=== PATIENT | female | born 1935 | race Caucasian/White ===

== ENCOUNTER 2018-01-22 10:57 | Emergency (ER) | payer OTHER, MEDICARE ==
--- OUTSIDE RECORDS SUMMARY | 2018-01-22 11:12 | XMS REPORT ---
:1935 [facility] Address [address] [place] [address] Care Team Providers Name Role Phone CHERELLE CHRISTINA Unavailable Unavailable Problems This patient has no known problems. Allergies, Adverse Reactions, Alerts This patient has no known allergies or adverse reactions. Medications This patient has no known medications. Results Test Description Test Time Test Comments Text Results Atomic Results Result Comments AFB CULTURE + SMEAR 2017-06-03 08:43:00 Test Item Value Reference Range Comments CULTURE (BEAKER) (test hztl=9923) No acid-fast bacilli isolated in 42 days AFB SMEAR (BEAKER) (test xblr=621) No acid fast bacilli seen AFB CULTURE + [id number] 08:43:00 Test Item Value Reference Range Comments CULTURE (BEAKER) (test No acid-fast bacilli isolated wkri=7410) in 42 days AFB SMEAR (BEAKER) (test No acid fast bacilli seen ywcn=345) FUNGUS CULTURE + [id number] 12:11:00 Test Item Value Reference Range Comments CULTURE (BEAKER) (test No fungus isolated in 28 days czcs=8001) FUNGUS SMEAR (BEAKER) (test No fungi seen agwj=3303) FUNGUS CULTURE + [id number] 12:11:00 Test Item Value Reference Range Comments CULTURE (BEAKER) (test No fungus isolated in 28 days fgsd=3964) FUNGUS SMEAR (BEAKER) (test No fungi seen aaxi=5795) SURGICALLY OBTAINED CULTURE + GRAM [id number] 09:50:00 Test Item Value Reference Range Comments CULTURE (BEAKER) (test From Broth Only dfdh=7633) Streptococcus sanguis GRAM STAIN RESULT <1+ WBCs (BEAKER) (test fudo=7096) GRAM STAIN RESULT No organisms seen (BEAKER) (test cqwv=953211) SURGICALLY OBTAINED CULTURE + GRAM [id number] 09:06:00 Test Item Value Reference Range Comments CULTURE (BEAKER) (test 3+ Viridans gyel=2906) Streptococcusof a second type CULTURE (BEAKER) (test STAPHYLOCOCCUS 2+ Viridans gmhb=3284) LUGDUNENSIS Streptococcus Clindamycin (test code=10) Erythromycin (test code=4) Levofloxacin (test code=22) Linezolid (test code=40) Nitrofurantoin (test code=23) Oxacillin (test code=14) Rifampin (test code=43) Tetracycline (test code=2) Trimethoprim + Sulfamethoxazole (test code=47) Vancomycin (test code=13) GRAM STAIN RESULT <1+ WBCs (BEAKER) (test jcle=1835) GRAM STAIN RESULT No organisms seen (BEAKER) (test uwgy=488740) BASIC METABOLIC [id number] 08:28:00 Test Item Value Reference Range Comments SODIUM (BEAKER) (test 135 meq/L 136-145 rrlt=258) POTASSIUM (BEAKER) (test 4.4 meq/L 3.5-5.1 nsuz=772) CHLORIDE (BEAKER) (test 106 meq/L 98-107 zpra=137) CO2 (BEAKER) (test 24 meq/L 22-29 zieg=477) BLOOD UREA NITROGEN 15 mg/dL 7-21 (BEAKER) (test piod=231) CREATININE (BEAKER) (test 0.66 mg/dL 0.57-1.25 xued=107) GLUCOSE RANDOM (BEAKER) 96 mg/dL 70-105 (test sfap=413) CALCIUM (BEAKER) (test 8.5 mg/dL 8.4-10.2 pmyu=473) EGFR (BEAKER) (test 86 mL/min/1.73 sq m ESTIMATED GFR IS NOT wbdi=6765) ACCURATE CREATININE CLEARANCE IN PREDICTING GLOMERULAR FILTRATION RATE. ESTIMATED GFR IS NOT APPLICABLE FOR DIALYSIS PATIENTS. CBC (HEMOGRAM ONLY)2017-04-25 08:14:00 Test Item Value Reference Range Comments WHITE BLOOD CELL COUNT (BEAKER) (test ejzx=910) 7.8 K/ L 3.5-10.5 RED BLOOD CELL COUNT (BEAKER) (test prgp=667) 3.35 M/ L 3.93-5.22 HEMOGLOBIN (BEAKER) (test oweu=092) 9.5 GM/DL 11.2-15.7 HEMATOCRIT (BEAKER) (test ynrv=479) 29.5 % 34.1-44.9 MEAN CORPUSCULAR VOLUME (BEAKER) (test wabi=387) 88.1 fL 79.4-94.8 MEAN CORPUSCULAR HEMOGLOBIN (BEAKER) (test 28.4 pg 25.6-32.2 umox=212) MEAN CORPUSCULAR HEMOGLOBIN CONC (BEAKER) (test 32.2 GM/DL 32.2-35.5 mcqd=477) RED CELL DISTRIBUTION WIDTH (BEAKER) (test 13.9 % 11.7-14.4 irne=909) PLATELET COUNT (BEAKER) (test pfyl=986) 569 K/CU MM 150-450 MEAN PLATELET VOLUME (BEAKER) (test xuhk=752) 8.0 fL 9.4-12.3 NUCLEATED RED BLOOD CELLS (BEAKER) (test 0 /100 WBC 0-0 xync=148) ANAEROBIC [id number] 01:01:00 Test Item Value Reference Range Comments CULTURE (BEAKER) (test mgbd=4690) No anaerobes isolated ANAEROBIC [id number] 01:01:00 Test Item Value Reference Range Comments CULTURE (BEAKER) (test nohi=9921) No anaerobes isolated RAD, CHEST, 1 VIEW, NON [id number] 16:03:00Reason for exam:->post picc line insertion Should this be performed at the bedside?->YesFINAL REPORT Two frontal chest images Discussion: Right PICC line extends to the cavoatrial junction level. Bilateral interstitial opacities probably represent edema perhaps withsuperimposed atelectasis. Correlate clinically for infection. No gross effusion or pneumothorax. Signed: Mckayla Hargrove MDReport Verified Date/Time: 04/24/2017 16:03:24 Reading Location: [facility] B1 C013W Consult Reading Room TISSUE [id number] 11:39:00Surgical Pathology Report Case: [id number] Authorizing Provider: Cherelle Christina MD Collected: 2016 Ordering Location: [address] Received : 04/21/2017 0952 Service Pathologist: Franchesca Mccauley MD Specimen: Bone, Biopsy/Curettings, Left middle finger bone biopsy LEFT MIDDLE FINGER, BONE, BIOPSY: - OSTEOMYELITIS - ABSCESS - NEGATIVE FOR MALIGNANCY - CORRELATION WITH CULTURE STUDIES RECOMMENDED Signing Pathologist Direct Phone Line: [phone] at 11: 39 [id number]; [id number] Left middle finger bone biopsyThe specimen is received in a fluidless container labeled with the patient's information and labeled "left middle finger bone biopsy" and consists of two ragged fragments of escamilla-red bone measuring 0.4and 0.5 cm, submitted entirely in A1 for decalcification. CG/ew PERFORMEDCBC W/PLT COUNT & AUTO [id number] 21:28:00 Test Item Value Reference Range Comments WHITE BLOOD CELL COUNT (BEAKER) (test nlqw=467) 8.4 K/ L 3.5-10.5 RED BLOOD CELL COUNT (BEAKER) (test wcrw=574) 3.21 M/ L 3.93-5.22 HEMOGLOBIN (BEAKER) (test nmab=994) 9.2 GM/DL 11.2-15.7 HEMATOCRIT (BEAKER) (test eooz=455) 28.7 % 34.1-44.9 MEAN CORPUSCULAR VOLUME (BEAKER) (test tfxm=191) 89.4 fL 79.4-94.8 MEAN CORPUSCULAR HEMOGLOBIN (BEAKER) (test 28.7 pg 25.6-32.2 kjrq=866) MEAN CORPUSCULAR HEMOGLOBIN CONC (BEAKER) (test 32.1 GM/DL 32.2-35.5 xkfc=375) RED CELL DISTRIBUTION WIDTH (BEAKER) (test 14.2 % 11.7-14.4 epdd=213) PLATELET COUNT (BEAKER) (test hbnb=225) 628 K/CU MM 150-450 MEAN PLATELET VOLUME (BEAKER) (test tuww=809) 8.3 fL 9.4-12.3 NUCLEATED RED BLOOD CELLS (BEAKER) (test 0 /100 WBC 0-0 ojoy=269) NEUTROPHILS RELATIVE PERCENT (BEAKER) (test 69 % zzsr=215) LYMPHOCYTES RELATIVE PERCENT (BEAKER) (test 16 % tueu=774) MONOCYTES RELATIVE PERCENT (BEAKER) (test 10 % kyvw=449) EOSINOPHILS RELATIVE PERCENT (BEAKER) (test 4 % moxv=657) BASOPHILS RELATIVE PERCENT (BEAKER) (test 1 % puuw=405) NEUTROPHILS ABSOLUTE COUNT (BEAKER) (test 5.74 K/ L 1.56-6.13 hmyp=991) LYMPHOCYTES ABSOLUTE COUNT (BEAKER) (test 1.37 K/ L 1.18-3.74 bowt=061) MONOCYTES ABSOLUTE COUNT (BEAKER) (test 0.82 K/ L 0.24-0.36 cwpe=978) EOSINOPHILS ABSOLUTE COUNT (BEAKER) (test 0.33 K/ L 0.04-0.36 uvzq=817) BASOPHILS ABSOLUTE COUNT (BEAKER) (test 0.04 K/ L 0.01-0.08 hofp=491) IMMATURE GRANULOCYTES-RELATIVE PERCENT (BEAKER) 1 % 0-1 (test cdkn=6074) BASIC METABOLIC [id number] 21:13:00 Test Item Value Reference Range Comments SODIUM (BEAKER) (test 134 meq/L 136-145 zofm=685) POTASSIUM (BEAKER) (test 4.1 meq/L 3.5-5.1 ftcg=525) CHLORIDE (BEAKER) (test 106 meq/L 98-107 gitj=448) CO2 (BEAKER) (test 22 meq/L 22-29 fvjj=514) BLOOD UREA NITROGEN 17 mg/dL 7-21 (BEAKER) (test tynw=579) CREATININE (BEAKER) (test 0.68 mg/dL 0.57-1.25 jatk=639) GLUCOSE RANDOM (BEAKER) 119 mg/dL 70-105 (test jvxe=431) CALCIUM (BEAKER) (test 8.3 mg/dL 8.4-10.2 jnvb=206) EGFR (BEAKER) (test 83 mL/min/1.73 sq m ESTIMATED GFR IS NOT vnvy=0464) ACCURATE CREATININE CLEARANCE IN PREDICTING GLOMERULAR FILTRATION RATE. ESTIMATED GFR IS NOT APPLICABLE FOR DIALYSIS PATIENTS. VANCOMYCIN LEVEL, [id number] 21:11:00 Test Item Value Reference Range Comments VANCOMYCIN TROUGH (BEAKER) (test bxzw=319) 22.5 ug/mL 10.0-20.0 WOUND CULTURE + GRAM [id number] 07:33:00 Test Item Value Reference Range Comments CULTURE (BEAKER) 4+ Viridans Streptococcus (test enlv=8222) GRAM STAIN RESULT 4+ WBCs (BEAKER) (test cgng=1262) GRAM STAIN RESULT 1+ gram positive cocci (BEAKER) (test in chains, pairs and cqsu=02750) clusters VITAMIN [id number] 05:29:00 Test Item Value Reference Range Comments VITAMIN B12 (BEAKER) (test mizp=701) 196 pg/mL 213-816 [id number] 05:29:00 Test Item Value Reference Range Comments FERRITIN (BEAKER) (test qrqc=992) 182 ng/mL 5-275 IRON, TIBC, % SAT. (WITHOUT FERRITIN)2017-04-22 05:10:00 Test Item Value Reference Range Comments IRON (BEAKER) (test dggo=477) 36 ug/dL 40-160 TOTAL IRON BINDING CAPACITY (BEAKER) (test 185 ug/dL 250-450 kcxr=176) IRON % SATURATION (2) (BEAKER) (test nult=2457) 19 % 20-55 BASIC METABOLIC [id number] 05:02:00 Test Item Value Reference Range Comments SODIUM (BEAKER) (test 137 meq/L 136-145 feps=378) POTASSIUM (BEAKER) (test 4.2 meq/L 3.5-5.1 bpwm=523) CHLORIDE (BEAKER) (test 111 meq/L 98-107 ckqb=956) CO2 (BEAKER) (test 21 meq/L 22-29 tixm=531) BLOOD UREA NITROGEN 21 mg/dL 7-21 (BEAKER) (test pvqt=703) CREATININE (BEAKER) (test 0.72 mg/dL 0.57-1.25 nkkw=028) GLUCOSE RANDOM (BEAKER) 101 mg/dL 70-105 (test zppv=797) CALCIUM (BEAKER) (test 8.4 mg/dL 8.4-10.2 ryjs=968) EGFR (BEAKER) (test 78 mL/min/1.73 sq m ESTIMATED GFR IS NOT tbxw=6880) ACCURATE CREATININE CLEARANCE IN PREDICTING GLOMERULAR FILTRATION RATE. ESTIMATED GFR IS NOT APPLICABLE FOR DIALYSIS PATIENTS. CBC W/PLT COUNT & AUTO [id number] 04:55:00 Test Item Value Reference Range Comments WHITE BLOOD CELL COUNT (BEAKER) (test cmgh=572) 8.1 K/ L 3.5-10.5 RED BLOOD CELL COUNT (BEAKER) (test fkpk=677) 3.08 M/ L 3.93-5.22 HEMOGLOBIN (BEAKER) (test sexs=290) 8.9 GM/DL 11.2-15.7 HEMATOCRIT (BEAKER) (test ssub=916) 28.0 % 34.1-44.9 MEAN CORPUSCULAR VOLUME (BEAKER) (test sbsn=894) 90.9 fL 79.4-94.8 MEAN CORPUSCULAR HEMOGLOBIN (BEAKER) (test 28.9 pg 25.6-32.2 rhnx=451) MEAN CORPUSCULAR HEMOGLOBIN CONC (BEAKER) (test 31.8 GM/DL 32.2-35.5 bbix=423) RED CELL DISTRIBUTION WIDTH (BEAKER) (test 14.3 % 11.7-14.4 uxla=752) PLATELET COUNT (BEAKER) (test nebj=588) 541 K/CU MM 150-450 MEAN PLATELET VOLUME (BEAKER) (test ejxv=707) 8.5 fL 9.4-12.3 NUCLEATED RED BLOOD CELLS (BEAKER) (test 0 /100 WBC 0-0 jase=473) NEUTROPHILS RELATIVE PERCENT (BEAKER) (test 69 % pgja=253) LYMPHOCYTES RELATIVE PERCENT (BEAKER) (test 19 % gtuo=155) MONOCYTES RELATIVE PERCENT (BEAKER) (test 10 % valu=340) EOSINOPHILS RELATIVE PERCENT (BEAKER) (test 1 % lmtk=456) BASOPHILS RELATIVE PERCENT (BEAKER) (test 0 % gopi=265) NEUTROPHILS ABSOLUTE COUNT (BEAKER) (test 5.55 K/ L 1.56-6.13 bmmg=123) LYMPHOCYTES ABSOLUTE COUNT (BEAKER) (test 1.57 K/ L 1.18-3.74 arui=107) MONOCYTES ABSOLUTE COUNT (BEAKER) (test 0.80 K/ L 0.24-0.36 wdbh=145) EOSINOPHILS ABSOLUTE COUNT (BEAKER) (test 0.09 K/ L 0.04-0.36 yocx=273) BASOPHILS ABSOLUTE COUNT (BEAKER) (test 0.02 K/ L 0.01-0.08 jszn=402) IMMATURE GRANULOCYTES-RELATIVE PERCENT (BEAKER) 1 % 0-1 (test kiqv=4218) VANCOMYCIN LEVEL, [id number] 21:46:00 Test Item Value Reference Range Comments VANCOMYCIN TROUGH (BEAKER) (test nwhi=222) 18.0 ug/mL 10.0-20.0 SPIN/CONCENTRATION [id number] 13:53:00 Test Item Value Reference Range Comments CONCENTRATION CHARGED (BEAKER) (test mhhw=8245) Done SPIN/CONCENTRATION [id number] 13:52:00 Test Item Value Reference Range Comments CONCENTRATION CHARGED (BEAKER) (test eash=3504) Done BASIC METABOLIC [id number] 11:02:00 Test Item Value Reference Range Comments SODIUM (BEAKER) (test 136 meq/L 136-145 szni=179) POTASSIUM (BEAKER) (test 4.5 meq/L 3.5-5.1 wprx=436) CHLORIDE (BEAKER) (test 109 meq/L 98-107 zhvi=482) CO2 (BEAKER) (test 22 meq/L 22-29 lwwe=214) BLOOD UREA NITROGEN 22 mg/dL 7-21 (BEAKER) (test pbqp=022) CREATININE (BEAKER) (test 0.76 mg/dL 0.57-1.25 inrw=525) GLUCOSE RANDOM (BEAKER) 133 mg/dL 70-105 (test xqbx=706) CALCIUM (BEAKER) (test 8.6 mg/dL 8.4-10.2 qxof=120) EGFR (BEAKER) (test 73 mL/min/1.73 sq m ESTIMATED GFR IS NOT kfaq=0928) ACCURATE CREATININE CLEARANCE IN PREDICTING GLOMERULAR FILTRATION RATE. ESTIMATED GFR IS NOT APPLICABLE FOR DIALYSIS PATIENTS. CBC W/PLT COUNT & AUTO [id number] 10:36:00 Test Item Value Reference Range Comments WHITE BLOOD CELL COUNT (BEAKER) (test alhn=893) 10.5 K/ L 3.5-10.5 RED BLOOD CELL COUNT (BEAKER) (test ztus=396) 3.29 M/ L 3.93-5.22 HEMOGLOBIN (BEAKER) (test xzdn=546) 9.7 GM/DL 11.2-15.7 HEMATOCRIT (BEAKER) (test hdhc=573) 29.5 % 34.1-44.9 MEAN CORPUSCULAR VOLUME (BEAKER) (test efia=444) 89.7 fL 79.4-94.8 MEAN CORPUSCULAR HEMOGLOBIN (BEAKER) (test 29.5 pg 25.6-32.2 yvib=904) MEAN CORPUSCULAR HEMOGLOBIN CONC (BEAKER) (test 32.9 GM/DL 32.2-35.5 slzs=964) RED CELL DISTRIBUTION WIDTH (BEAKER) (test 14.2 % 11.7-14.4 tlos=192) PLATELET COUNT (BEAKER) (test tgtl=141) 530 K/CU MM 150-450 MEAN PLATELET VOLUME (BEAKER) (test yfly=440) 9.0 fL 9.4-12.3 NUCLEATED RED BLOOD CELLS (BEAKER) (test 0 /100 WBC 0-0 zqps=946) NEUTROPHILS RELATIVE PERCENT (BEAKER) (test 89 % tekf=153) LYMPHOCYTES RELATIVE PERCENT (BEAKER) (test 4 % xkxu=065) MONOCYTES RELATIVE PERCENT (BEAKER) (test 7 % mcuz=275) EOSINOPHILS RELATIVE PERCENT (BEAKER) (test 0 % rafo=911) BASOPHILS RELATIVE PERCENT (BEAKER) (test 0 % otei=415) NEUTROPHILS ABSOLUTE COUNT (BEAKER) (test 9.36 K/ L 1.56-6.13 uqsk=626) LYMPHOCYTES ABSOLUTE COUNT (BEAKER) (test 0.38 K/ L 1.18-3.74 mdgj=272) MONOCYTES ABSOLUTE COUNT (BEAKER) (test 0.73 K/ L 0.24-0.36 jncn=465) EOSINOPHILS ABSOLUTE COUNT (BEAKER) (test 0.00 K/ L 0.04-0.36 ezsi=602) BASOPHILS ABSOLUTE COUNT (BEAKER) (test 0.02 K/ L 0.01-0.08 xvuc=751) IMMATURE GRANULOCYTES-RELATIVE PERCENT (BEAKER) 1 % 0-1 (test cdjr=1975) VANCOMYCIN LEVEL, [id number] 23:26:00 Test Item Value Reference Range Comments VANCOMYCIN TROUGH (BEAKER) (test tcim=882) 24.2 ug/mL 10.0-20.0 CBC W/PLT COUNT & AUTO [id number] 11:10:00 Test Item Value Reference Range Comments WHITE BLOOD CELL COUNT (BEAKER) (test jtjm=166) 8.5 K/ L 3.5-10.5 RED BLOOD CELL COUNT (BEAKER) (test seiy=150) 3.18 M/ L 3.93-5.22 HEMOGLOBIN (BEAKER) (test jmwj=970) 9.2 GM/DL 11.2-15.7 HEMATOCRIT (BEAKER) (test gtjl=487) 28.5 % 34.1-44.9 MEAN CORPUSCULAR VOLUME (BEAKER) (test hyrm=701) 89.6 fL 79.4-94.8 MEAN CORPUSCULAR HEMOGLOBIN (BEAKER) (test 28.9 pg 25.6-32.2 bayk=454) MEAN CORPUSCULAR HEMOGLOBIN CONC (BEAKER) (test 32.3 GM/DL 32.2-35.5 acvl=665) RED CELL DISTRIBUTION WIDTH (BEAKER) (test 14.4 % 11.7-14.4 moct=980) PLATELET COUNT (BEAKER) (test aczq=644) 478 K/CU MM 150-450 MEAN PLATELET VOLUME (BEAKER) (test fjtc=794) 9.0 fL 9.4-12.3 NUCLEATED RED BLOOD CELLS (BEAKER) (test 0 /100 WBC 0-0 qwtn=397) NEUTROPHILS RELATIVE PERCENT (BEAKER) (test 82 % sgjx=303) LYMPHOCYTES RELATIVE PERCENT (BEAKER) (test 10 % lcug=653) MONOCYTES RELATIVE PERCENT (BEAKER) (test 5 % jbvs=507) EOSINOPHILS RELATIVE PERCENT (BEAKER) (test 1 % edsu=543) BASOPHILS RELATIVE PERCENT (BEAKER) (test 0 % fjhx=963) NEUTROPHILS ABSOLUTE COUNT (BEAKER) (test 7.01 K/ L 1.56-6.13 zwrq=237) LYMPHOCYTES ABSOLUTE COUNT (BEAKER) (test 0.84 K/ L 1.18-3.74 dmry=911) MONOCYTES ABSOLUTE COUNT (BEAKER) (test 0.46 K/ L 0.24-0.36 jkta=736) EOSINOPHILS ABSOLUTE COUNT (BEAKER) (test 0.10 K/ L 0.04-0.36 httt=776) BASOPHILS ABSOLUTE COUNT (BEAKER) (test 0.03 K/ L 0.01-0.08 myuq=036) IMMATURE GRANULOCYTES-RELATIVE PERCENT (BEAKER) 1 % 0-1 (test phui=1848) BASIC METABOLIC [id number] 11:07:00 Test Item Value Reference Range Comments SODIUM (BEAKER) (test 133 meq/L 136-145 jknf=461) POTASSIUM (BEAKER) (test 3.9 meq/L 3.5-5.1 eqxx=338) CHLORIDE (BEAKER) (test 106 meq/L 98-107 jkto=917) CO2 (BEAKER) (test 20 meq/L 22-29 dhdp=935) BLOOD UREA NITROGEN 30 mg/dL 7-21 (BEAKER) (test mwfj=974) CREATININE (BEAKER) (test 0.86 mg/dL 0.57-1.25 rwte=092) GLUCOSE RANDOM (BEAKER) 126 mg/dL 70-105 (test otyq=579) CALCIUM (BEAKER) (test 8.6 mg/dL 8.4-10.2 tfee=451) EGFR (BEAKER) (test 63 mL/min/1.73 sq m ESTIMATED GFR IS NOT rosj=6756) ACCURATE CREATININE CLEARANCE IN PREDICTING GLOMERULAR FILTRATION RATE. ESTIMATED GFR IS NOT APPLICABLE FOR DIALYSIS PATIENTS. MR, EXTREMITY, UPPER, [id number] 01:17:00Reason for exam:->swelling edema of handFINAL REPORT MR, EXTREMITY, UPPER, WITHOUT \\ T\\ WITH CONTRAST, LEFT INDICATION: "swelling edema of hand" COMPARISON: Left hand x-ray 04/19/2017 TECHNIQUE: Multiplanar, multisequence MR images of the left hand with and without contrast. FINDINGS: Multiloculated abscess at the tipof the third digit which measures approximately 5 x 2 x 13 mm. The majority of the abscess is subungual although it does wrap around to the volar aspect of the DIP joint. There is osteomyelitis of the distal phalanx with erosion of part of the finger tuft. No osteomyelitis of the middle or proximal phalanx. There is no large volume flexor or extensor tenosynovitis. There is circumferential swelling around the third ray which extends to the dorsum of the mid hand. 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 This is worst in the DIPs and triscaphe joint. IMPRESSION:The third finger tuft abscess and osteomyelitis. Signed: Ena Mantilla MDReport Verified Date/Time: 04/20/2017 01:17:11 Reading Location: [facility] C0[facility] Ortho Consult Reading Room SEDIMENTATION [id number] 18:28:00 Test Item Value Reference Range Comments SEDIMENTATION RATE, ERYTHROCYTE (BEAKER) (test 67 mm/HR 0-40 stjf=252) RAD, FINGERS, MIN 2 VIEWS, [id number] 12:15:00Reason for exam:->swelling , edemaShould this be performed at the bedside?->YesFINAL REPORT Left third digit of hand, three views HISTORY: Swelling, edema COMPARISON: None. DISCUSSION: There is marked soft tissue swelling about the third digit. Advanced degenerative changes are seen in the DIP joints and first carpometacarpal joint with joint space narrowing, osteophyte formation, and subchondral sclerosis. No acute displaced fracture or dislocation. IMPRESSION: Marked soft tissue swelling about the third digit. Degenerative changes in the hand. No acutedisplaced fracture or dislocation. Signed: Raf Jose MDReport Verified Date/Time: 04/19/2017 12:15:32 Reading Location: [facility] C013Y CT Body Reading Room 12: 15 PMCBC W/PLT COUNT & AUTO [id number] 07:32:00 Test Item Value Reference Range Comments WHITE BLOOD CELL COUNT (BEAKER) (test ymtt=623) 12.5 K/ L 3.5-10.5 RED BLOOD CELL COUNT (BEAKER) (test zorl=433) 3.19 M/ L 3.93-5.22 HEMOGLOBIN (BEAKER) (test pbuo=298) 9.3 GM/DL 11.2-15.7 HEMATOCRIT (BEAKER) (test wrck=748) 29.3 % 34.1-44.9 MEAN CORPUSCULAR VOLUME (BEAKER) (test muhz=373) 91.8 fL 79.4-94.8 MEAN CORPUSCULAR HEMOGLOBIN (BEAKER) (test 29.2 pg 25.6-32.2 lulx=665) MEAN CORPUSCULAR HEMOGLOBIN CONC (BEAKER) (test 31.7 GM/DL 32.2-35.5 svhc=605) RED CELL DISTRIBUTION WIDTH (BEAKER) (test 14.6 % 11.7-14.4 qmbc=658) PLATELET COUNT (BEAKER) (test aiqa=618) 528 K/CU MM 150-450 MEAN PLATELET VOLUME (BEAKER) (test pcon=155) 9.7 fL 9.4-12.3 NUCLEATED RED BLOOD CELLS (BEAKER) (test 0 /100 WBC 0-0 wvpc=288) NEUTROPHILS RELATIVE PERCENT (BEAKER) (test 82 % fizf=111) LYMPHOCYTES RELATIVE PERCENT (BEAKER) (test 7 % qqqw=874) MONOCYTES RELATIVE PERCENT (BEAKER) (test 10 % pzou=158) EOSINOPHILS RELATIVE PERCENT (BEAKER) (test 0 % jaoe=583) BASOPHILS RELATIVE PERCENT (BEAKER) (test 0 % haya=172) NEUTROPHILS ABSOLUTE COUNT (BEAKER) (test 10.29 K/ L 1.56-6.13 htyl=240) LYMPHOCYTES ABSOLUTE COUNT (BEAKER) (test 0.85 K/ L 1.18-3.74 fllb=344) MONOCYTES ABSOLUTE COUNT (BEAKER) (test 1.22 K/ L 0.24-0.36 swem=029) EOSINOPHILS ABSOLUTE COUNT (BEAKER) (test 0.03 K/ L 0.04-0.36 ijmd=864) BASOPHILS ABSOLUTE COUNT (BEAKER) (test 0.04 K/ L 0.01-0.08 zztt=198) IMMATURE GRANULOCYTES-RELATIVE PERCENT (BEAKER) 1 % 0-1 (test porm=7501) BASIC METABOLIC [id number] 07:21:00 Test Item Value Reference Range Comments SODIUM (BEAKER) (test 133 meq/L 136-145 mqeo=049) POTASSIUM (BEAKER) (test 4.1 meq/L 3.5-5.1 uypa=150) CHLORIDE (BEAKER) (test 105 meq/L 98-107 uyiz=917) CO2 (BEAKER) (test 20 meq/L 22-29 kdsk=596) BLOOD UREA NITROGEN 28 mg/dL 7-21 (BEAKER) (test pehw=405) CREATININE (BEAKER) (test 0.90 mg/dL 0.57-1.25 jsfi=566) GLUCOSE RANDOM (BEAKER) 104 mg/dL 70-105 (test hixb=475) CALCIUM (BEAKER) (test 8.9 mg/dL 8.4-10.2 fbbr=514) EGFR (BEAKER) (test 60 mL/min/1.73 sq m ESTIMATED GFR IS NOT eqqm=1029) ACCURATE CREATININE CLEARANCE IN PREDICTING GLOMERULAR FILTRATION RATE. ESTIMATED GFR IS NOT APPLICABLE FOR DIALYSIS PATIENTS. C-REACTIVE [id number] 07:21:00 Test Item Value Reference Range Comments C-REACTIVE PROTEIN (ALIX) (test iorp=193) 12.50 mg/dL 0.00-0.50
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
--- NOTE | 2018-01-22 11:29 | EDPHYS ---
Physician Documentation [facility] Name: Brynn De Luna Age: 82 yrs Sex: Female : 1935 Arrival Date: 01/22/2018 Time: 10:59 Bed 16 Private MD: Brenna Tuttle H ED Physician Luis Alberto Ochoa HPI: 01/22 11:25 This 82 yrs old Female presents to ER via Wheelchair with complaints of Elbow rn Injury. 11:25 The patient or guardian complains of pain, swelling. The complaints affect the left rn elbow. 11:25 Onset: The symptoms/episode began/occurred 5 day(s) ago. Severity of symptoms: At their rn worst the symptoms were mild, in the emergency department the symptoms are unchanged. The patient has not experienced similar symptoms in the past. Reports uses wheelchair everyday, noticed a few days ago that had pain and swelling to left elbow, no trauma other than repeated use, doesn't hurt in elbow proper, only hurts when touches swollen area, no fever. . Historical: - Allergies: 11:05 Sulfa (Sulfonamide Antibiotics); sg 11:05 PENICILLINS; sg - PMHx: 11:05 Bladder Spasms; Hypertension; sg - PSHx: 11:05 Cholecystectomy; sg - Immunization history:: Adult Immunizations up to date. - Social history:: Smoking status: Patient/guardian denies using tobacco. - Ebola Screening: : Patient negative for fever greater than or equal to 101.5 degrees Fahrenheit, and additional compatible Ebola Virus Disease symptoms Patient denies exposure to infectious person Patient denies travel to an Ebola-affected area in the 21 days before illness onset No symptoms or risks identified at this time. - Family history:: not pertinent. - Hospitalizations: : No recent hospitalization is reported. ROS: 11:25 Constitutional: Negative for fever, chills, and weight loss, MS/Extremity: Negative for rn injury and deformity, Skin: Negative for injury, rash Neuro: Negative for headache, weakness, numbness, tingling, and seizure. Exam: 11:25 Constitutional: This is a well developed, well nourished patient who is awake, alert, rn and in no acute distress. MS/ Extremity: Pulses equal, no cyanosis. Neurovascular intact. Full, normal range of motion. Equal circumference. + left elbow with external swelling and mild erythema consistent with olecranon bursitis, no streaking Vital Signs: 11:05 BP 149 / 81; Pulse 97; Resp 18; Temp 97.8; Pulse Ox 99% on R/A; Weight 68.04 kg (R); sg Pain 8/10; MDM: 11:11 Patient medically screened. rn 11:25 Differential diagnosis: olecranon bursitis. Data reviewed: vital signs, nurses notes, rn and as a result, I will discharge patient. Counseling: I had a detailed discussion with the patient and/or guardian regarding: the historical points, exam findings, and any diagnostic results supporting the discharge/admit diagnosis, the need for outpatient follow up, to return to the emergency department if symptoms worsen or persist or if there are any questions or concerns that arise at home. Special discussion: I discussed with the patient/guardian in detail that at this point there is no indication for admission to the hospital. It is understood, however, that if the symptoms persist or worsen the patient needs to return immediately for re-evaluation. Administered Medications: No medications were administered Disposition: 01/22/18 11:28 Discharged to Home. Impression: Olecranon bursitis, left elbow. - Condition is Stable. - Discharge Instructions: Bursitis, Olecranon Bursitis. - Prescriptions for Clindamycin HCl 150 mg Oral Capsule - take 1 capsule by ORAL route every 6 hours for 10 days; 40 capsule. Tylenol- Codeine #3 300-30 mg Oral Tablet - take 1 tablet by ORAL route every 6 hours As needed; 20 tablet. Medrol (Froilan) 4 mg Oral Tablets, Dose Pack - take 1 tablet by ORAL route as directed - follow package instructions; 1 packet. - Medication Reconciliation Form, Thank You Letter, Antibiotic Education, Prescription Opioid Use form. - Follow up: Marin Krueger MD; When: 2 - 3 days; Reason: Recheck today's complaints, Re-evaluation by your physician. - Problem is an ongoing problem. - Symptoms have improved. Signatures: Marin Vásquez RN RN sg Myers, Amanda, RN RN aj Nieto, Roman, MD MD rn travel: (The following items were deleted from the chart) 11:42 11:28 01/22/2018 11:28 Discharged to Home. Impression: Olecranon bursitis, left elbow. aj Condition is Stable. Forms are Medication Reconciliation Form, Thank You Letter, Antibiotic Education, Prescription Opioid Use. Follow up: Marin Krueger; When: 2 - 3 days; Reason: Recheck today's complaints, Re-evaluation by your physician. Problem is an ongoing problem. Symptoms have improved. rn
--- NOTE | 2018-01-22 11:29 | ER ---
Nurse's Notes [facility] Name: Brynn De Luna Age: 82 yrs Sex: Female : 1935 Arrival Date: 01/22/2018 Time: 10:59 Bed 16 Private MD: Brenna Tuttle H Diagnosis: Olecranon bursitis, left elbow Presentation: 01/22 11:03 Presenting complaint: Patient states: Left elbow pain and swelling, reports feels as if sg fluid is in the joint, redness noted, pt reports using wheelchair so frequent use of upper extremities but has not had a problem like this in about 40 years. Transition of care: patient was not received from another setting of care. Onset of symptoms was January 17, 2018. Risk Assessment: Do you want to hurt yourself or someone else? Patient reports no desire to harm self or others. Initial Sepsis Screen: Does the patient meet any 2 criteria? No. Patient's initial sepsis screen is negative. Does the patient have a suspected source of infection? No. Patient's initial sepsis screen is negative. Care prior to arrival: None. 11:03 Method Of Arrival: Wheelchair sg 11:03 Acuity: RUDI 4 sg Historical: - Allergies: 11:05 Sulfa (Sulfonamide Antibiotics); sg 11:05 PENICILLINS; sg - PMHx: 11:05 Bladder Spasms; Hypertension; sg - PSHx: 11:05 Cholecystectomy; sg - Immunization history:: Adult Immunizations up to date. - Social history:: Smoking status: Patient/guardian denies using tobacco. - Ebola Screening: : Patient negative for fever greater than or equal to 101.5 degrees Fahrenheit, and additional compatible Ebola Virus Disease symptoms Patient denies exposure to infectious person Patient denies travel to an Ebola-affected area in the 21 days before illness onset No symptoms or risks identified at this time. - Family history:: not pertinent. - Hospitalizations: : No recent hospitalization is reported. Screenin:28 Abuse screen: Denies threats or abuse. Denies injuries from another. Nutritional aj screening: No deficits noted. Tuberculosis screening: No symptoms or risk factors identified. Fall Risk None identified. Assessment: 11:28 General: Appears in no apparent distress. comfortable, Behavior is calm, cooperative, aj appropriate for age. Pain: Denies pain. Neuro: Level of Consciousness is awake, alert, obeys commands, Oriented to person, place, time, situation, Appropriate for age. Respiratory: Airway is patent Respiratory effort is even, unlabored, Respiratory pattern is regular, symmetrical. Derm: Skin is intact, is healthy with good turgor, Skin is pink, warm \T\ dry. normal. Musculoskeletal: Swelling present in left elbow. 11:42 Reassessment: Patient appears in no apparent distress at this time. No changes from aj previously documented assessment. Patient and/or family updated on plan of care and expected duration. Pain level reassessed. Patient is alert, oriented x 3, equal unlabored respirations, skin warm/dry/pink. Vital Signs: 11:05 BP 149 / 81; Pulse 97; Resp 18; Temp 97.8; Pulse Ox 99% on R/A; Weight 68.04 kg (R); sg Pain 8/10; ED Course: 10:59 Patient arrived in ED. sb2 10:59 Brenna Tuttle DO is Private Physician. sb2 11:04 Triage completed. sg 11:05 Arm band placed on. sg 11:11 Luis Alberto Ochoa MD is Attending Physician. rn 11:28 Bev Beck RN is Primary Nurse. aj 11:28 Marin Krueger MD is Referral Physician. rn 11:28 Patient has correct armband on for positive identification. aj 11:28 No provider procedures requiring assistance completed. Patient did not have IV access aj during this emergency room visit. Administered Medications: No medications were administered Outcome: 11:28 Discharge ordered by MD. rn 11:42 Discharged to home via wheelchair, with family. aj 11:42 Condition: good 11:42 Discharge instructions given to patient, family, Instructed on discharge instructions, follow up and referral plans. medication usage, Demonstrated understanding of instructions, follow-up care, medications, Prescriptions given X 3. 11:42 Patient left the ED. aj Signatures: Marin Vásquez RN RN sg Myers, Amanda, RN RN aj Nieto, Roman, MD MD rn Billeau, Sheri sb2
== END 2018-01-22 11:42 | disposition home or self-care (01) ==
LOC: ER 10:57
DX: M70.22 Olecranon bursitis, left elbow (principal); Z88.0 Allergy status to penicillin; Z88.2 Allergy status to sulfonamides; I10 Essential (primary) hypertension; N32.89 Other specified disorders of bladder
CPT/HCPCS: 99282

== ENCOUNTER 2018-01-25 10:42 | Emergency (ER) | payer OTHER, MEDICARE ==
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
--- OUTSIDE RECORDS SUMMARY | 2018-01-25 10:46 | XMS REPORT ---
:1935 Author Organization [facility] Address [address] [place] [id number] Care Team Providers Name Role Phone CHERELLE [...] Value Reference Range Comments CULTURE (BEAKER) (test yqbt=1281) No acid-fast bacilli isolated in 42 days AFB SMEAR (BEAKER) (test grub=229) No acid fast bacilli seen AFB CULTURE + [id number] 08:43:00 Test Item Value Reference Range Comments CULTURE (BEAKER) (test No acid-fast bacilli isolated jxqd=6803) in 42 days AFB SMEAR (BEAKER) (test No acid fast bacilli seen irrm=390) FUNGUS CULTURE + [id number] 12:11:00 Test Item Value Reference Range Comments CULTURE (BEAKER) (test No fungus isolated in 28 days cekj=9601) FUNGUS SMEAR (BEAKER) (test No fungi seen snsu=3509) FUNGUS CULTURE + [id number] 12:11:00 Test Item Value Reference Range Comments CULTURE (BEAKER) (test No fungus isolated in 28 days bfjp=6904) FUNGUS SMEAR (BEAKER) (test No fungi seen jznq=6312) SURGICALLY OBTAINED CULTURE + GRAM [id number] 09:50:00 Test Item Value Reference Range Comments CULTURE (BEAKER) (test From Broth Only degu=9729) Streptococcus sanguis GRAM STAIN RESULT <1+ WBCs (BEAKER) (test ercg=4897) GRAM STAIN RESULT No organisms seen (BEAKER) (test hplh=460339) SURGICALLY OBTAINED CULTURE + GRAM [id number] 09:06:00 Test Item Value Reference Range Comments CULTURE (BEAKER) (test 3+ Viridans wxeg=0599) Streptococcusof a second type CULTURE (BEAKER) (test STAPHYLOCOCCUS 2+ Viridans iwgu=8427) LUGDUNENSIS Streptococcus Clindamycin (test code=10) Erythromycin (test code=4) Levofloxacin (test code=22) Linezolid (test code=40) Nitrofurantoin (test code=23) Oxacillin (test code=14) Rifampin (test code=43) Tetracycline (test code=2) Trimethoprim + Sulfamethoxazole (test code=47) Vancomycin (test code=13) GRAM STAIN RESULT <1+ WBCs (BEAKER) (test aopb=1844) GRAM STAIN RESULT No organisms seen (BEAKER) (test khzn=336753) BASIC METABOLIC [id number] 08:28:00 Test Item Value Reference Range Comments SODIUM (BEAKER) (test 135 meq/L 136-145 kscy=424) POTASSIUM (BEAKER) (test 4.4 meq/L 3.5-5.1 yaff=396) CHLORIDE (BEAKER) (test 106 meq/L 98-107 rgpj=800) CO2 (BEAKER) (test 24 meq/L 22-29 tmld=403) BLOOD UREA NITROGEN 15 mg/dL 7-21 (BEAKER) (test xuux=581) CREATININE (BEAKER) (test 0.66 mg/dL 0.57-1.25 hqik=632) GLUCOSE RANDOM (BEAKER) 96 mg/dL 70-105 (test yfqb=760) CALCIUM (BEAKER) (test 8.5 mg/dL 8.4-10.2 qvdr=101) EGFR (BEAKER) (test 86 mL/min/1.73 sq m ESTIMATED GFR IS NOT vvgj=9949) ACCURATE CREATININE CLEARANCE IN PREDICTING GLOMERULAR FILTRATION RATE. ESTIMATED GFR IS NOT APPLICABLE FOR DIALYSIS PATIENTS. CBC (HEMOGRAM ONLY)2017-04-25 08:14:00 Test Item Value Reference Range Comments WHITE BLOOD CELL COUNT (BEAKER) (test oexs=993) 7.8 K/ L 3.5-10.5 RED BLOOD CELL COUNT (BEAKER) (test rhjb=275) 3.35 M/ L 3.93-5.22 HEMOGLOBIN (BEAKER) (test liep=208) 9.5 GM/DL 11.2-15.7 HEMATOCRIT (BEAKER) (test irzu=093) 29.5 % 34.1-44.9 MEAN CORPUSCULAR VOLUME (BEAKER) (test knmw=653) 88.1 fL 79.4-94.8 MEAN CORPUSCULAR HEMOGLOBIN (BEAKER) (test 28.4 pg 25.6-32.2 qqds=995) MEAN CORPUSCULAR HEMOGLOBIN CONC (BEAKER) (test 32.2 GM/DL 32.2-35.5 fibq=819) RED CELL DISTRIBUTION WIDTH (BEAKER) (test 13.9 % 11.7-14.4 abfd=703) PLATELET COUNT (BEAKER) (test qspy=211) 569 K/CU MM 150-450 MEAN PLATELET VOLUME (BEAKER) (test yhyp=291) 8.0 fL 9.4-12.3 NUCLEATED RED BLOOD CELLS (BEAKER) (test 0 /100 WBC 0-0 psvd=605) ANAEROBIC [id number] 01:01:00 Test Item Value Reference Range Comments CULTURE (BEAKER) (test dace=6320) No anaerobes isolated ANAEROBIC [id number] 01:01:00 Test Item Value Reference Range Comments CULTURE (BEAKER) (test rbnf=2028) No anaerobes isolated RAD, CHEST, 1 VIEW, NON [id number] 16:03:00Reason for exam:->post picc line insertion Should this be performed at the bedside?->YesFINAL REPORT Two frontal chest images Discussion: Right PICC line extends to the cavoatrial junction level. Bilateral interstitial opacities probably represent edema perhaps withsuperimposed atelectasis. Correlate clinically for infection. No gross effusion or pneumothorax. Signed: Mckayla Hargrove MDReport Verified Date/Time: 04/24/2017 16:03:24 Reading Location: [facility] B1 C013W Consult Reading Room TISSUE [id number] 11:39:00Surgical Pathology Report Case: [id number] Authorizing Provider: Cherelle Christina MD Collected: 2016 Ordering Location: [address] Received : 04/21/2017 0952 Service Pathologist: Franchesca Mccauley MD Specimen: Bone, Biopsy/Curettings, Left middle finger bone biopsy LEFT MIDDLE FINGER, BONE, BIOPSY: - OSTEOMYELITIS - ABSCESS - NEGATIVE FOR MALIGNANCY - CORRELATION WITH CULTURE STUDIES RECOMMENDED Signing Pathologist Direct Phone Line: at 11: 39 [id number]; [id number] Left middle finger bone biopsyThe specimen is received in a fluidless container labeled with the patient's information and labeled "left middle finger bone biopsy" and consists of two ragged fragments of escamilla-red bone measuring 0.4and 0.5 cm, submitted entirely in A1 for decalcification. CG/ew PERFORMEDCBC W/PLT COUNT & AUTO [id number] 21:28:00 Test Item Value Reference Range Comments WHITE BLOOD CELL COUNT (BEAKER) (test snsh=439) 8.4 K/ L 3.5-10.5 RED BLOOD CELL COUNT (BEAKER) (test npgp=205) 3.21 M/ L 3.93-5.22 HEMOGLOBIN (BEAKER) (test ejri=691) 9.2 GM/DL 11.2-15.7 HEMATOCRIT (BEAKER) (test uljt=334) 28.7 % 34.1-44.9 MEAN CORPUSCULAR VOLUME (BEAKER) (test ldni=421) 89.4 fL 79.4-94.8 MEAN CORPUSCULAR HEMOGLOBIN (BEAKER) (test 28.7 pg 25.6-32.2 yiyd=045) MEAN CORPUSCULAR HEMOGLOBIN CONC (BEAKER) (test 32.1 GM/DL 32.2-35.5 npcv=253) RED CELL DISTRIBUTION WIDTH (BEAKER) (test 14.2 % 11.7-14.4 dgix=712) PLATELET COUNT (BEAKER) (test ardf=653) 628 K/CU MM 150-450 MEAN PLATELET VOLUME (BEAKER) (test qyes=725) 8.3 fL 9.4-12.3 NUCLEATED RED BLOOD CELLS (BEAKER) (test 0 /100 WBC 0-0 powu=908) NEUTROPHILS RELATIVE PERCENT (BEAKER) (test 69 % rtqx=595) LYMPHOCYTES RELATIVE PERCENT (BEAKER) (test 16 % iprf=666) MONOCYTES RELATIVE PERCENT (BEAKER) (test 10 % mivo=213) EOSINOPHILS RELATIVE PERCENT (BEAKER) (test 4 % gzog=924) BASOPHILS RELATIVE PERCENT (BEAKER) (test 1 % kjyv=791) NEUTROPHILS ABSOLUTE COUNT (BEAKER) (test 5.74 K/ L 1.56-6.13 ykca=773) LYMPHOCYTES ABSOLUTE COUNT (BEAKER) (test 1.37 K/ L 1.18-3.74 vhkx=862) MONOCYTES ABSOLUTE COUNT (BEAKER) (test 0.82 K/ L 0.24-0.36 umhv=667) EOSINOPHILS ABSOLUTE COUNT (BEAKER) (test 0.33 K/ L 0.04-0.36 fzia=038) BASOPHILS ABSOLUTE COUNT (BEAKER) (test 0.04 K/ L 0.01-0.08 ijlt=437) IMMATURE GRANULOCYTES-RELATIVE PERCENT (BEAKER) 1 % 0-1 (test yevb=2104) BASIC METABOLIC [id number] 21:13:00 Test Item Value Reference Range Comments SODIUM (BEAKER) (test 134 meq/L 136-145 uzlt=290) POTASSIUM (BEAKER) (test 4.1 meq/L 3.5-5.1 ybtx=451) CHLORIDE (BEAKER) (test 106 meq/L 98-107 pabm=031) CO2 (BEAKER) (test 22 meq/L 22-29 rigc=524) BLOOD UREA NITROGEN 17 mg/dL 7-21 (BEAKER) (test lmnw=201) CREATININE (BEAKER) (test 0.68 mg/dL 0.57-1.25 kmia=730) GLUCOSE RANDOM (BEAKER) 119 mg/dL 70-105 (test sezc=429) CALCIUM (BEAKER) (test 8.3 mg/dL 8.4-10.2 epmz=785) EGFR (BEAKER) (test 83 mL/min/1.73 sq m ESTIMATED GFR IS NOT mtpy=2752) ACCURATE CREATININE CLEARANCE IN PREDICTING GLOMERULAR FILTRATION RATE. ESTIMATED GFR IS NOT APPLICABLE FOR DIALYSIS PATIENTS. VANCOMYCIN LEVEL, [id number] 21:11:00 Test Item Value Reference Range Comments VANCOMYCIN TROUGH (BEAKER) (test ytdy=325) 22.5 ug/mL 10.0-20.0 WOUND CULTURE + GRAM [id number] 07:33:00 Test Item Value Reference Range Comments CULTURE (BEAKER) 4+ Viridans Streptococcus (test rqqg=1180) GRAM STAIN RESULT 4+ WBCs (BEAKER) (test bbcd=6140) GRAM STAIN RESULT 1+ gram positive cocci (BEAKER) (test in chains, pairs and fdcu=72961) clusters VITAMIN [id number] 05:29:00 Test Item Value Reference Range Comments VITAMIN B12 (BEAKER) (test xodx=018) 196 pg/mL 213-816 [id number] 05:29:00 Test Item Value Reference Range Comments FERRITIN (BEAKER) (test bmvy=222) 182 ng/mL 5-275 IRON, TIBC, % SAT. (WITHOUT FERRITIN)2017-04-22 05:10:00 Test Item Value Reference Range Comments IRON (BEAKER) (test ryuq=999) 36 ug/dL 40-160 TOTAL IRON BINDING CAPACITY (BEAKER) (test 185 ug/dL 250-450 tbzy=092) IRON % SATURATION (2) (BEAKER) (test gcgw=2798) 19 % 20-55 BASIC METABOLIC [id number] 05:02:00 Test Item Value Reference Range Comments SODIUM (BEAKER) (test 137 meq/L 136-145 xwgf=026) POTASSIUM (BEAKER) (test 4.2 meq/L 3.5-5.1 uevo=898) CHLORIDE (BEAKER) (test 111 meq/L 98-107 gbsy=217) CO2 (BEAKER) (test 21 meq/L 22-29 bxqz=951) BLOOD UREA NITROGEN 21 mg/dL 7-21 (BEAKER) (test srvi=325) CREATININE (BEAKER) (test 0.72 mg/dL 0.57-1.25 mjor=244) GLUCOSE RANDOM (BEAKER) 101 mg/dL 70-105 (test ybrd=202) CALCIUM (BEAKER) (test 8.4 mg/dL 8.4-10.2 pygp=227) EGFR (BEAKER) (test 78 mL/min/1.73 sq m ESTIMATED GFR IS NOT jyjf=9735) ACCURATE CREATININE CLEARANCE IN PREDICTING GLOMERULAR FILTRATION RATE. ESTIMATED GFR IS NOT APPLICABLE FOR DIALYSIS PATIENTS. CBC W/PLT COUNT & AUTO [id number] 04:55:00 Test Item Value Reference Range Comments WHITE BLOOD CELL COUNT (BEAKER) (test eskb=916) 8.1 K/ L 3.5-10.5 RED BLOOD CELL COUNT (BEAKER) (test mdwl=768) 3.08 M/ L 3.93-5.22 HEMOGLOBIN (BEAKER) (test hhqw=190) 8.9 GM/DL 11.2-15.7 HEMATOCRIT (BEAKER) (test bbvk=831) 28.0 % 34.1-44.9 MEAN CORPUSCULAR VOLUME (BEAKER) (test coyk=675) 90.9 fL 79.4-94.8 MEAN CORPUSCULAR HEMOGLOBIN (BEAKER) (test 28.9 pg 25.6-32.2 racw=576) MEAN CORPUSCULAR HEMOGLOBIN CONC (BEAKER) (test 31.8 GM/DL 32.2-35.5 evlm=007) RED CELL DISTRIBUTION WIDTH (BEAKER) (test 14.3 % 11.7-14.4 iyfu=054) PLATELET COUNT (BEAKER) (test eakf=215) 541 K/CU MM 150-450 MEAN PLATELET VOLUME (BEAKER) (test fqrm=279) 8.5 fL 9.4-12.3 NUCLEATED RED BLOOD CELLS (BEAKER) (test 0 /100 WBC 0-0 fdny=019) NEUTROPHILS RELATIVE PERCENT (BEAKER) (test 69 % zyzz=873) LYMPHOCYTES RELATIVE PERCENT (BEAKER) (test 19 % yxzg=573) MONOCYTES RELATIVE PERCENT (BEAKER) (test 10 % aqjt=168) EOSINOPHILS RELATIVE PERCENT (BEAKER) (test 1 % drck=773) BASOPHILS RELATIVE PERCENT (BEAKER) (test 0 % jaqk=009) NEUTROPHILS ABSOLUTE COUNT (BEAKER) (test 5.55 K/ L 1.56-6.13 akrq=876) LYMPHOCYTES ABSOLUTE COUNT (BEAKER) (test 1.57 K/ L 1.18-3.74 ooac=912) MONOCYTES ABSOLUTE COUNT (BEAKER) (test 0.80 K/ L 0.24-0.36 bwqu=129) EOSINOPHILS ABSOLUTE COUNT (BEAKER) (test 0.09 K/ L 0.04-0.36 fqws=526) BASOPHILS ABSOLUTE COUNT (BEAKER) (test 0.02 K/ L 0.01-0.08 wiyr=662) IMMATURE GRANULOCYTES-RELATIVE PERCENT (BEAKER) 1 % 0-1 (test qtqa=1456) VANCOMYCIN LEVEL, [id number] 21:46:00 Test Item Value Reference Range Comments VANCOMYCIN TROUGH (BEAKER) (test zxmg=527) 18.0 ug/mL 10.0-20.0 SPIN/CONCENTRATION [id number] 13:53:00 Test Item Value Reference Range Comments CONCENTRATION CHARGED (BEAKER) (test qiyt=1040) Done SPIN/CONCENTRATION [id number] 13:52:00 Test Item Value Reference Range Comments CONCENTRATION CHARGED (BEAKER) (test tbtl=4828) Done BASIC METABOLIC [id number] 11:02:00 Test Item Value Reference Range Comments SODIUM (BEAKER) (test 136 meq/L 136-145 heps=067) POTASSIUM (BEAKER) (test 4.5 meq/L 3.5-5.1 erlk=130) CHLORIDE (BEAKER) (test 109 meq/L 98-107 xscj=279) CO2 (BEAKER) (test 22 meq/L 22-29 flgd=409) BLOOD UREA NITROGEN 22 mg/dL 7-21 (BEAKER) (test wpdt=510) CREATININE (BEAKER) (test 0.76 mg/dL 0.57-1.25 jesa=900) GLUCOSE RANDOM (BEAKER) 133 mg/dL 70-105 (test dyoh=639) CALCIUM (BEAKER) (test 8.6 mg/dL 8.4-10.2 xvox=384) EGFR (BEAKER) (test 73 mL/min/1.73 sq m ESTIMATED GFR IS NOT umia=7344) ACCURATE CREATININE CLEARANCE IN PREDICTING GLOMERULAR FILTRATION RATE. ESTIMATED GFR IS NOT APPLICABLE FOR DIALYSIS PATIENTS. CBC W/PLT COUNT & AUTO [id number] 10:36:00 Test Item Value Reference Range Comments WHITE BLOOD CELL COUNT (BEAKER) (test cskw=341) 10.5 K/ L 3.5-10.5 RED BLOOD CELL COUNT (BEAKER) (test tghc=975) 3.29 M/ L 3.93-5.22 HEMOGLOBIN (BEAKER) (test gmhk=481) 9.7 GM/DL 11.2-15.7 HEMATOCRIT (BEAKER) (test njop=907) 29.5 % 34.1-44.9 MEAN CORPUSCULAR VOLUME (BEAKER) (test hxqe=358) 89.7 fL 79.4-94.8 MEAN CORPUSCULAR HEMOGLOBIN (BEAKER) (test 29.5 pg 25.6-32.2 tefv=277) MEAN CORPUSCULAR HEMOGLOBIN CONC (BEAKER) (test 32.9 GM/DL 32.2-35.5 ftea=245) RED CELL DISTRIBUTION WIDTH (BEAKER) (test 14.2 % 11.7-14.4 gvye=484) PLATELET COUNT (BEAKER) (test njyy=073) 530 K/CU MM 150-450 MEAN PLATELET VOLUME (BEAKER) (test vsbv=857) 9.0 fL 9.4-12.3 NUCLEATED RED BLOOD CELLS (BEAKER) (test 0 /100 WBC 0-0 foli=017) NEUTROPHILS RELATIVE PERCENT (BEAKER) (test 89 % pncb=370) LYMPHOCYTES RELATIVE PERCENT (BEAKER) (test 4 % jlza=465) MONOCYTES RELATIVE PERCENT (BEAKER) (test 7 % meez=200) EOSINOPHILS RELATIVE PERCENT (BEAKER) (test 0 % cwby=861) BASOPHILS RELATIVE PERCENT (BEAKER) (test 0 % gamy=099) NEUTROPHILS ABSOLUTE COUNT (BEAKER) (test 9.36 K/ L 1.56-6.13 fzkx=306) LYMPHOCYTES ABSOLUTE COUNT (BEAKER) (test 0.38 K/ L 1.18-3.74 jjzc=122) MONOCYTES ABSOLUTE COUNT (BEAKER) (test 0.73 K/ L 0.24-0.36 ilir=918) EOSINOPHILS ABSOLUTE COUNT (BEAKER) (test 0.00 K/ L 0.04-0.36 cwpm=541) BASOPHILS ABSOLUTE COUNT (BEAKER) (test 0.02 K/ L 0.01-0.08 ezkh=703) IMMATURE GRANULOCYTES-RELATIVE PERCENT (BEAKER) 1 % 0-1 (test udpj=4755) VANCOMYCIN LEVEL, [id number] 23:26:00 Test Item Value Reference Range Comments VANCOMYCIN TROUGH (BEAKER) (test ajvv=201) 24.2 ug/mL 10.0-20.0 CBC W/PLT COUNT & AUTO [id number] 11:10:00 Test Item Value Reference Range Comments WHITE BLOOD CELL COUNT (BEAKER) (test ympl=550) 8.5 K/ L 3.5-10.5 RED BLOOD CELL COUNT (BEAKER) (test thcx=609) 3.18 M/ L 3.93-5.22 HEMOGLOBIN (BEAKER) (test huaa=447) 9.2 GM/DL 11.2-15.7 HEMATOCRIT (BEAKER) (test odvx=824) 28.5 % 34.1-44.9 MEAN CORPUSCULAR VOLUME (BEAKER) (test zdjl=964) 89.6 fL 79.4-94.8 MEAN CORPUSCULAR HEMOGLOBIN (BEAKER) (test 28.9 pg 25.6-32.2 nheh=184) MEAN CORPUSCULAR HEMOGLOBIN CONC (BEAKER) (test 32.3 GM/DL 32.2-35.5 iziu=529) RED CELL DISTRIBUTION WIDTH (BEAKER) (test 14.4 % 11.7-14.4 owen=422) PLATELET COUNT (BEAKER) (test zgoj=851) 478 K/CU MM 150-450 MEAN PLATELET VOLUME (BEAKER) (test jymr=334) 9.0 fL 9.4-12.3 NUCLEATED RED BLOOD CELLS (BEAKER) (test 0 /100 WBC 0-0 gont=287) NEUTROPHILS RELATIVE PERCENT (BEAKER) (test 82 % cpyd=927) LYMPHOCYTES RELATIVE PERCENT (BEAKER) (test 10 % skmm=670) MONOCYTES RELATIVE PERCENT (BEAKER) (test 5 % ajne=250) EOSINOPHILS RELATIVE PERCENT (BEAKER) (test 1 % zhxp=067) BASOPHILS RELATIVE PERCENT (BEAKER) (test 0 % hcma=670) NEUTROPHILS ABSOLUTE COUNT (BEAKER) (test 7.01 K/ L 1.56-6.13 tvxi=447) LYMPHOCYTES ABSOLUTE COUNT (BEAKER) (test 0.84 K/ L 1.18-3.74 ehxl=744) MONOCYTES ABSOLUTE COUNT (BEAKER) (test 0.46 K/ L 0.24-0.36 fcpi=118) EOSINOPHILS ABSOLUTE COUNT (BEAKER) (test 0.10 K/ L 0.04-0.36 jvfr=499) BASOPHILS ABSOLUTE COUNT (BEAKER) (test 0.03 K/ L 0.01-0.08 otyl=214) IMMATURE GRANULOCYTES-RELATIVE PERCENT (BEAKER) 1 % 0-1 (test oxds=1366) BASIC METABOLIC [id number] 11:07:00 Test Item Value Reference Range Comments SODIUM (BEAKER) (test 133 meq/L 136-145 zthb=257) POTASSIUM (BEAKER) (test 3.9 meq/L 3.5-5.1 brqh=262) CHLORIDE (BEAKER) (test 106 meq/L 98-107 ykcr=725) CO2 (BEAKER) (test 20 meq/L 22-29 nmhi=402) BLOOD UREA NITROGEN 30 mg/dL 7-21 (BEAKER) (test auai=276) CREATININE (BEAKER) (test 0.86 mg/dL 0.57-1.25 saxz=965) GLUCOSE RANDOM (BEAKER) 126 mg/dL 70-105 (test wixo=344) CALCIUM (BEAKER) (test 8.6 mg/dL 8.4-10.2 wttw=334) EGFR (BEAKER) (test 63 mL/min/1.73 sq m ESTIMATED GFR IS NOT onfr=1570) ACCURATE CREATININE CLEARANCE IN PREDICTING GLOMERULAR FILTRATION RATE. ESTIMATED GFR IS NOT APPLICABLE FOR DIALYSIS PATIENTS. MR, EXTREMITY, UPPER, [id number] 01:17:00Reason for exam:->swelling edema of handFINAL REPORT [...] MDReport Verified Date/Time: 04/20/2017 01:17:11 Reading Location: [facility] C013X Ortho Consult Reading Room SEDIMENTATION [id number] 18:28:00 Test Item Value Reference Range Comments SEDIMENTATION RATE, ERYTHROCYTE (BEAKER) (test 67 mm/HR 0-40 jwls=275) RAD, FINGERS, MIN 2 VIEWS, [id number] 12:15:00Reason for exam:->swelling , edemaShould this be [...] MDReport Verified Date/Time: 04/19/2017 12:15:32 Reading Location: [facility] C013Y CT Body Reading Room 12: 15 PMCBC W/PLT COUNT & AUTO [id number] 07:32:00 Test Item Value Reference Range Comments WHITE BLOOD CELL COUNT (BEAKER) (test eknn=041) 12.5 K/ L 3.5-10.5 RED BLOOD CELL COUNT (BEAKER) (test hrnr=023) 3.19 M/ L 3.93-5.22 HEMOGLOBIN (BEAKER) (test xdlr=761) 9.3 GM/DL 11.2-15.7 HEMATOCRIT (BEAKER) (test uvkq=528) 29.3 % 34.1-44.9 MEAN CORPUSCULAR VOLUME (BEAKER) (test mwzv=270) 91.8 fL 79.4-94.8 MEAN CORPUSCULAR HEMOGLOBIN (BEAKER) (test 29.2 pg 25.6-32.2 rwjs=202) MEAN CORPUSCULAR HEMOGLOBIN CONC (BEAKER) (test 31.7 GM/DL 32.2-35.5 tshk=892) RED CELL DISTRIBUTION WIDTH (BEAKER) (test 14.6 % 11.7-14.4 jhwi=462) PLATELET COUNT (BEAKER) (test bqlk=003) 528 K/CU MM 150-450 MEAN PLATELET VOLUME (BEAKER) (test wgbs=093) 9.7 fL 9.4-12.3 NUCLEATED RED BLOOD CELLS (BEAKER) (test 0 /100 WBC 0-0 lumz=936) NEUTROPHILS RELATIVE PERCENT (BEAKER) (test 82 % zgwp=372) LYMPHOCYTES RELATIVE PERCENT (BEAKER) (test 7 % quua=704) MONOCYTES RELATIVE PERCENT (BEAKER) (test 10 % rmxr=144) EOSINOPHILS RELATIVE PERCENT (BEAKER) (test 0 % tqkj=828) BASOPHILS RELATIVE PERCENT (BEAKER) (test 0 % ehop=321) NEUTROPHILS ABSOLUTE COUNT (BEAKER) (test 10.29 K/ L 1.56-6.13 zoew=361) LYMPHOCYTES ABSOLUTE COUNT (BEAKER) (test 0.85 K/ L 1.18-3.74 wsoq=983) MONOCYTES ABSOLUTE COUNT (BEAKER) (test 1.22 K/ L 0.24-0.36 lsts=509) EOSINOPHILS ABSOLUTE COUNT (BEAKER) (test 0.03 K/ L 0.04-0.36 bbuv=517) BASOPHILS ABSOLUTE COUNT (BEAKER) (test 0.04 K/ L 0.01-0.08 gjsi=804) IMMATURE GRANULOCYTES-RELATIVE PERCENT (BEAKER) 1 % 0-1 (test cdxk=5943) BASIC METABOLIC [id number] 07:21:00 Test Item Value Reference Range Comments SODIUM (BEAKER) (test 133 meq/L 136-145 iwbf=035) POTASSIUM (BEAKER) (test 4.1 meq/L 3.5-5.1 xyjn=834) CHLORIDE (BEAKER) (test 105 meq/L 98-107 tqrq=000) CO2 (BEAKER) (test 20 meq/L 22-29 ouds=308) BLOOD UREA NITROGEN 28 mg/dL 7-21 (BEAKER) (test ipmt=514) CREATININE (BEAKER) (test 0.90 mg/dL 0.57-1.25 wjlc=694) GLUCOSE RANDOM (BEAKER) 104 mg/dL 70-105 (test rswg=450) CALCIUM (BEAKER) (test 8.9 mg/dL 8.4-10.2 vngv=566) EGFR (BEAKER) (test 60 mL/min/1.73 sq m ESTIMATED GFR IS NOT rnhf=9398) ACCURATE CREATININE CLEARANCE IN PREDICTING GLOMERULAR FILTRATION RATE. ESTIMATED GFR IS NOT APPLICABLE FOR DIALYSIS PATIENTS. C-REACTIVE [id number] 07:21:00 Test Item Value Reference Range Comments C-REACTIVE PROTEIN (ALIX) (test ghtd=997) 12.50 mg/dL 0.00-0.50
[2018-01-25] MEDS ORDERED: CEPHALEXIN 250 MG CAP ONE (12:09)
--- NOTE | 2018-01-25 12:17 | EDPHYS ---
Physician Documentation [facility] Name: Brynn De Luna Age: 82 yrs Sex: Female : 1935 Arrival Date: 01/25/2018 Time: 10:46 Bed 2 Private MD: Brenna Tuttle H ED Physician Solomon Antonio HPI: 01/25 11:54 This 82 yrs old Female presents to ER via Wheelchair with complaints of jeremy Bruise on arm. 11:54 The patient or guardian complains of contusion, decreased range of motion, pain. The jeremy complaints affect the left antecubital area and left elbow. Context: The problem was sustained at an unknown location. Onset: The symptoms/episode began/occurred 3 day(s) ago. Treatment prior to arrival includes: no previous treatment. Modifying factors: The symptoms are alleviated by remaining still, the symptoms are aggravated by movement. Associated signs and symptoms: The patient has no apparent associated signs or symptoms. Severity of symptoms: At their worst the symptoms were mild. The patient has not experienced similar symptoms in the past. Historical: - Allergies: 11:12 PENICILLINS; iw 11:12 Sulfa (Sulfonamide Antibiotics); iw - PMHx: 11:12 Bladder Spasms; Hypertension; iw - PSHx: 11:12 Cholecystectomy; iw - Immunization history:: Adult Immunizations not up to date. - Social history:: Smoking status: Patient/guardian denies using tobacco. - Ebola Screening: : Patient negative for fever greater than or equal to 101.5 degrees Fahrenheit, and additional compatible Ebola Virus Disease symptoms Patient denies exposure to infectious person Patient denies travel to an Ebola-affected area in the 21 days before illness onset No symptoms or risks identified at this time. - Family history:: not pertinent. ROS: 11:54 Constitutional: Negative for fever, chills, and weight loss, Eyes: Negative for injury, jeremy pain, redness, and discharge, ENT: Negative for injury, pain, and discharge, Neck: Negative for injury, pain, and swelling, Cardiovascular: Negative for chest pain, palpitations, and edema, Respiratory: Negative for shortness of breath, cough, wheezing, and pleuritic chest pain, Abdomen/GI: Negative for abdominal pain, nausea, vomiting, diarrhea, and constipation, Back: Negative for injury and pain, : Negative for injury, bleeding, discharge, and swelling, Skin: Negative for injury, rash, and discoloration, Neuro: Negative for headache, weakness, numbness, tingling, and seizure, Psych: Negative for depression, anxiety, suicide ideation, homicidal ideation, and hallucinations, Allergy/Immunology: Negative for hives, rash, and allergies, Endocrine: Negative for neck swelling, polydipsia, polyuria, polyphagia, and marked weight changes, Hematologic/Lymphatic: Negative for swollen nodes, abnormal bleeding, and unusual bruising. 11:54 MS/extremity: Positive for decreased range of motion, pain, swelling, tenderness, of the left antecubital area and left elbow. Exam: 11:54 Constitutional: This is a well developed, well nourished patient who is awake, alert, jeremy and in no acute distress. Head/Face: Normocephalic, atraumatic. Eyes: Pupils equal round and reactive to light, extra-ocular motions intact. Lids and lashes normal. Conjunctiva and sclera are non-icteric and not injected. Cornea within normal limits. Periorbital areas with no swelling, redness, or edema. ENT: Nares patent. No nasal discharge, no septal abnormalities noted. Tympanic membranes are normal and external auditory canals are clear. Oropharynx with no redness, swelling, or masses, exudates, or evidence of obstruction, uvula midline. Mucous membranes moist. Neck: Trachea midline, no thyromegaly or masses palpated, and no cervical lymphadenopathy. Supple, full range of motion without nuchal rigidity, or vertebral point tenderness. No Meningismus. Chest/axilla: Normal chest wall appearance and motion. Nontender with no deformity. No lesions are appreciated. Cardiovascular: Regular rate and rhythm with a normal S1 and S2. No gallops, murmurs, or rubs. Normal PMI, no JVD. No pulse deficits. Respiratory: Lungs have equal breath sounds bilaterally, clear to auscultation and percussion. No rales, rhonchi or wheezes noted. No increased work of breathing, no retractions or nasal flaring. Abdomen/GI: Soft, non-tender, with normal bowel sounds. No distension or tympany. No guarding or rebound. No evidence of tenderness throughout. Back: No spinal tenderness. No costovertebral tenderness. Full range of motion. Female : Normal external genitalia. Skin: Warm, dry with normal turgor. Normal color with no rashes, no lesions, and no evidence of cellulitis. Neuro: Awake and alert, GCS 15, oriented to person, place, time, and situation. Cranial nerves II-XII grossly intact. Motor strength 5/5 in all extremities. Sensory grossly intact. Cerebellar exam normal. Normal gait. Psych: Awake, alert, with orientation to person, place and time. Behavior, mood, and affect are within normal limits. 11:54 Musculoskeletal/extremity: Pulses: Sensation intact. Compartment Syndrome exam of affected extremity: is normal. DVT Exam: negative Homans' sign noted on exam, no appreciated bluish discoloration, pain, swelling, tenderness, erythema, increased warmth, that is mild, of the left antecubital area and left elbow. Vital Signs: 11:12 BP 141 / 67; Pulse 86; Resp 16; Temp 97.5; Pulse Ox 97% on R/A; Weight 70.31 kg; Height iw 5 ft. 4 in. (162.56 cm); Pain 5/10; 11:12 Body Mass Index 26.61 (70.31 kg, 162.56 cm) MDM: 11:42 Patient medically screened. [facility] 11:57 Data reviewed: vital signs, nurses notes, radiologic studies, plain films. [facility] 01/25 11:48 Order name: Elbow Left 2 View XRAY jl7 Administered Medications: 12:12 Drug: KeFLEX 500 mg Route: PO; jl7 14:30 Follow up: Response: No adverse reaction jl7 Disposition: 01/25/18 12:16 Discharged to Home. Impression: Contusion of left elbow. - Condition is Stable. - Discharge Instructions: Contusion, Elbow Contusion, Olecranon Bursitis, Olecranon Bursitis, [id number], Elbow Contusion, [id number]. - Prescriptions for Keflex 500 mg Oral Capsule - take 1 capsule by ORAL route every 6 hours for 7 days; 28 capsule. Motrin IB 200 mg Oral Tablet - take 1 tablet by ORAL route every 6 hours As needed as needed with food; 20 tablet. - Medication Reconciliation Form, Thank You Letter, Antibiotic Education, Prescription Opioid Use form. - Follow up: Brenna Tuttle; When: 2 - 3 days; Reason: Recheck today's complaints, Continuance of care, Re-evaluation by your physician. - Problem is new. - Symptoms have improved. Signatures: Dispatcher [employer] Solomon Romo MD MD cha Williams, Irene, RN RN Ana Pritchard RN RN jl7 Corrections: (The following items were deleted from the chart) 12:47 12:16 01/25/2018 12:16 Discharged to Home. Impression: Contusion of left elbow. iw Condition is Stable. Discharge Instructions: Contusion, Elbow Contusion, Olecranon Bursitis, Olecranon Bursitis, [id number], Elbow Contusion, [id number]. Prescriptions for Keflex 500 mg Oral Capsule - take 1 capsule by ORAL route every 6 hours for 7 days; 28 capsule, Motrin IB 200 mg Oral Tablet - take 1 tablet by ORAL route every 6 hours As needed as needed with food; 20 tablet. and Forms are Medication Reconciliation Form, Thank You Letter, Antibiotic Education, Prescription Opioid Use. Follow up: Brenna Tuttle; When: 2 - 3 days; Reason: Recheck today's complaints, Continuance of care, Re-evaluation by your physician. Problem is new. Symptoms have improved. jeremy
--- NOTE | 2018-01-25 12:17 | ER ---
Nurse's Notes [facility] Name: Brynn De Luna Age: 82 yrs Sex: Female : 1935 Arrival Date: 01/25/2018 Time: 10:46 Bed 2 Private MD: Brenna Tuttle H Diagnosis: Contusion of left elbow Presentation: 01/25 11:09 Presenting complaint: Patient states: was seen here on for bursitis in left iw elbow, this morning she noticed a bruise in left inner arm, thinks it is from putting pressure on the arm when she uses her bed pain at night, pt takes baby aspirin daily, also has more pain to elbow. Transition of care: patient was not received from another setting of care. Onset of symptoms was January 25, 2018. Risk Assessment: Do you want to hurt yourself or someone else? Patient reports no desire to harm self or others. Initial Sepsis Screen: Does the patient meet any 2 criteria? No. Patient's initial sepsis screen is negative. Does the patient have a suspected source of infection? No. Patient's initial sepsis screen is negative. Care prior to arrival: None. 11:09 Method Of Arrival: Wheelchair iw 11:09 Acuity: RUDI 4 iw Historical: - Allergies: 11:12 PENICILLINS; iw 11:12 Sulfa (Sulfonamide Antibiotics); iw - PMHx: 11:12 Bladder Spasms; Hypertension; iw - PSHx: 11:12 Cholecystectomy; iw - Immunization history:: Adult Immunizations not up to date. - Social history:: Smoking status: Patient/guardian denies using tobacco. - Ebola Screening: : Patient negative for fever greater than or equal to 101.5 degrees Fahrenheit, and additional compatible Ebola Virus Disease symptoms Patient denies exposure to infectious person Patient denies travel to an Ebola-affected area in the 21 days before illness onset No symptoms or risks identified at this time. - Family history:: not pertinent. Screenin:32 Abuse screen: Denies threats or abuse. Denies injuries from another. Nutritional jl7 screening: No deficits noted. Tuberculosis screening: No symptoms or risk factors identified. Fall Risk No secondary diagnosis (0 pts). No IV (0 pts). Ambulatory Aid- None/Bed Rest/Nurse Assist (0 pts). Gait- Normal/Bed Rest/Wheelchair (0 pts) Mental Status- Oriented to own ability (0 pts). Total Morales Fall Scale indicates No Risk (0-24 pts). Assessment: 11:32 General: Appears in no apparent distress. comfortable, Behavior is calm, cooperative, jl7 appropriate for age. Pain: Denies pain. Neuro: Level of Consciousness is awake, alert, obeys commands, Oriented to person, place, time, situation. Cardiovascular: Patient's skin is warm and dry. Respiratory: Airway is patent Respiratory effort is even, unlabored, Respiratory pattern is regular, symmetrical. GI: No signs and/or symptoms were reported involving the gastrointestinal system. : No signs and/or symptoms were reported regarding the genitourinary system. EENT: No signs and/or symptoms were reported regarding the EENT system. Derm: Skin is pink, warm \T\ dry. Bruising that is dark purple, on left elbow. Musculoskeletal: Swelling present in left elbow. Vital Signs: 11:12 BP 141 / 67; Pulse 86; Resp 16; Temp 97.5; Pulse Ox 97% on R/A; Weight 70.31 kg; Height iw 5 ft. 4 in. (162.56 cm); Pain 5/10; 11:12 Body Mass Index 26.61 (70.31 kg, 162.56 cm) iw ED Course: 10:46 Patient arrived in ED. mr 10:46 Brenna Tuttle DO is Private Physician. mr 11:11 Triage completed. iw 11:12 Arm band placed on. iw 11:31 Ana Hassan, RN is Primary Nurse. jl7 11:32 Patient has correct armband on for positive identification. Call light in reach. jl7 11:42 Solomon Antonio MD is Attending Physician. jeremy 12:16 X-ray completed. Portable x-ray completed in exam room. Patient tolerated procedure ag1 well. 12:16 Brenna Tuttle DO is Referral Physician. jeremy 12:17 Elbow Left 2 View XRAY In Process Unspecified. EDMS 12:47 No provider procedures requiring assistance completed. Patient did not have IV access iw during this emergency room visit. Administered Medications: 12:12 Drug: KeFLEX 500 mg Route: PO; jl7 14:30 Follow up: Response: No adverse reaction jl7 Outcome: 12:16 Discharge ordered by . jeremy 12:46 Discharged to home via wheelchair, with family. iw 12:46 Condition: good 12:46 Discharge instructions given to patient, family, Instructed on discharge instructions, follow up and referral plans. medication usage, Demonstrated understanding of instructions, follow-up care, medications, Prescriptions given X 1, pt is to continue taking clindamycin that was prescribed earlier this week 12:47 Patient left the ED. iw Signatures: Dispatcher [employer] EDMT Solomon Antonio MD MD cha Rivera, Maria mr Williams, Irene, RN RN Bailee Milner ag1 Ana Hassan RN RN jl7
--- NOTE | 2018-01-25 13:03 | RAD REPORT ---
EXAM DESCRIPTION: RAD - Elbow Left 2 View - 01/25/2018 12:19 pm CLINICAL HISTORY: Soft tissue swelling, bursitis diagnosis COMPARISON: None. FINDINGS: No fracture, dislocation or periosteal reaction. No pathologic bone process. No elevation of the posterior fat pad. Soft tissues are edematous along the posterior and lateral margin of the elbow joint. There is partic ular soft tissue thickening posterior to the olecranon with calcifications in the soft tissues town planner ior to the joint. IMPRESSION: Findings of calcific olecranon bursitis. 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
== END 2018-01-25 12:47 | disposition home or self-care (01) ==
LOC: ER 10:42
DX: S50.02XA Contusion of left elbow, initial encounter (principal); X58.XXXA Exposure to other specified factors, initial encounter; Y93.9 Activity, unspecified; Y92.9 Unspecified place or not applicable; Y99.9 Unspecified external cause status; Z88.0 Allergy status to penicillin; Z88.2 Allergy status to sulfonamides
CPT/HCPCS: 99283

== ENCOUNTER 2018-06-04 09:31 | Emergency (ER) | payer OTHER, MEDICARE ==
--- OUTSIDE RECORDS SUMMARY | 2018-06-04 09:33 | XMS REPORT | Clinical Summary ---
:1935 Author Organization [facility] Address [address] [place] [address] Care Team Providers Name Role Phone Unavailable Primary Care Provider Unavailable Allergies Active Allergy Reactions Severity Noted Date Comments Sulfa (Sulfonamide Antibiotics) Rash Low 04/19/2017 Medications Medication Sig Dispensed Refills Start Date End Date Status oxybutynin Take 10 mg by 0 Active (DITROPAN-XL) 10 MG mouth daily. 24 hr tablet losartan (COZAAR) 100 Take 100 mg by 0 Active MG tabletIndications: mouth daily. hypertension amLODIPine (NORVASC) Take 1 tablet (5 90 tablet 3 04/26/2017 04/26/2018 5 MG tablet mg total) by mouth daily. hydrogen peroxide 3 % Apply topically 120 mL 6 04/25/2017 04/25/2018 external solution 3 (three) times daily Soak left third finger three times daily. cyanocobalamin 1000 Take 1 tablet 90 tablet 3 04/26/2017 04/26/2018 MCG tablet (1,000 mcg total) by mouth daily. Active Problems Problem Noted Date Osteomyelitis of left hand 04/23/2017 Paraplegia 04/21/2017 Neurogenic bladder 04/21/2017 Essential hypertension 04/21/2017 Anemia 04/21/2017 Abscess of finger of left hand 04/20/2017 Immunizations Name Dates Previously Given Next Due Tdap 04/20/2017 Social History Tobacco Use Types Packs/Day Years Used Date Never Smoker Smokeless Tobacco: Never Used Sex Assigned at Date Recorded Not on file Job Start Date Occupation Industry Not on file Not on file Not on file Travel History Travel Start Travel End No recent travel history available. Last Filed Vital Signs Not on file Plan of Treatment Not on file Results Not on fileafter 06/03/2017 Insurance Payer Benefit Plan / Group Subscriber ID Type Phone Address MEDICARE MEDICARE A B xxxxxxxxxx Medicare MCR SUPPLEMENT/INDIVIDUAL AARP/[facility] xxxxxxxxxxx [facility] (Home) [place] [address] Advance Directives For more information, please contact:[address] [phone] Code Status Date Activated Date Inactivated Comments Full Code 04/19/2017 4:27 AM 04/25/2017 4:42 PM This code status was determined by: Patient
--- OUTSIDE RECORDS SUMMARY | 2018-06-04 09:34 | XMS REPORT ---
:1935 Author Organization [facility] Address [address] [place] [id number] Care Team Providers Name Role Phone CHERELLE [...] Value Reference Range Comments CULTURE (BEAKER) (test mdve=3731) No acid-fast bacilli isolated in 42 days AFB SMEAR (BEAKER) (test upbq=822) No acid fast bacilli seen AFB CULTURE + [id number] 08:43:00 Test Item Value Reference Range Comments CULTURE (BEAKER) (test No acid-fast bacilli isolated gdqz=0904) in 42 days AFB SMEAR (BEAKER) (test No acid fast bacilli seen zdtm=208) FUNGUS CULTURE + [id number] 12:11:00 Test Item Value Reference Range Comments CULTURE (BEAKER) (test No fungus isolated in 28 days vyqd=2940) FUNGUS SMEAR (BEAKER) (test No fungi seen pwtc=0538) FUNGUS CULTURE + [id number] 12:11:00 Test Item Value Reference Range Comments CULTURE (BEAKER) (test No fungus isolated in 28 days stne=5355) FUNGUS SMEAR (BEAKER) (test No fungi seen lhog=7841) SURGICALLY OBTAINED CULTURE + GRAM [id number] 09:50:00 Test Item Value Reference Range Comments CULTURE (BEAKER) (test From Broth Only mryw=6068) Streptococcus sanguis GRAM STAIN RESULT <1+ WBCs (BEAKER) (test bbzw=4730) GRAM STAIN RESULT No organisms seen (BEAKER) (test iznk=584790) SURGICALLY OBTAINED CULTURE + GRAM [id number] 09:06:00 Test Item Value Reference Range Comments CULTURE (BEAKER) (test 3+ Viridans ushr=9048) Streptococcusof a second type CULTURE (BEAKER) (test STAPHYLOCOCCUS 2+ Viridans pkrl=1430) LUGDUNENSIS Streptococcus Clindamycin (test code=10) Erythromycin (test code=4) Levofloxacin (test code=22) Linezolid (test code=40) Nitrofurantoin (test code=23) Oxacillin (test code=14) Rifampin (test code=43) Tetracycline (test code=2) Trimethoprim + Sulfamethoxazole (test code=47) Vancomycin (test code=13) GRAM STAIN RESULT <1+ WBCs (BEAKER) (test sodl=2572) GRAM STAIN RESULT No organisms seen (BEAKER) (test yaiy=619088) BASIC METABOLIC [id number] 08:28:00 Test Item Value Reference Range Comments SODIUM (BEAKER) (test 135 meq/L 136-145 jsiq=618) POTASSIUM (BEAKER) (test 4.4 meq/L 3.5-5.1 naob=075) CHLORIDE (BEAKER) (test 106 meq/L 98-107 wpqw=219) CO2 (BEAKER) (test 24 meq/L 22-29 yyab=434) BLOOD UREA NITROGEN 15 mg/dL 7-21 (BEAKER) (test kijy=570) CREATININE (BEAKER) (test 0.66 mg/dL 0.57-1.25 koyv=640) GLUCOSE RANDOM (BEAKER) 96 mg/dL 70-105 (test iqfy=572) CALCIUM (BEAKER) (test 8.5 mg/dL 8.4-10.2 vcrj=908) EGFR (BEAKER) (test 86 mL/min/1.73 sq m ESTIMATED GFR IS NOT unhe=5034) ACCURATE CREATININE CLEARANCE IN PREDICTING GLOMERULAR FILTRATION RATE. ESTIMATED GFR IS NOT APPLICABLE FOR DIALYSIS PATIENTS. CBC (HEMOGRAM ONLY)2017-04-25 08:14:00 Test Item Value Reference Range Comments WHITE BLOOD CELL COUNT (BEAKER) (test gcuw=755) 7.8 K/ L 3.5-10.5 RED BLOOD CELL COUNT (BEAKER) (test zvfv=969) 3.35 M/ L 3.93-5.22 HEMOGLOBIN (BEAKER) (test ygsi=698) 9.5 GM/DL 11.2-15.7 HEMATOCRIT (BEAKER) (test saia=984) 29.5 % 34.1-44.9 MEAN CORPUSCULAR VOLUME (BEAKER) (test wstb=926) 88.1 fL 79.4-94.8 MEAN CORPUSCULAR HEMOGLOBIN (BEAKER) (test 28.4 pg 25.6-32.2 qxxz=970) MEAN CORPUSCULAR HEMOGLOBIN CONC (BEAKER) (test 32.2 GM/DL 32.2-35.5 emdg=353) RED CELL DISTRIBUTION WIDTH (BEAKER) (test 13.9 % 11.7-14.4 ompr=877) PLATELET COUNT (BEAKER) (test opqa=957) 569 K/CU MM 150-450 MEAN PLATELET VOLUME (BEAKER) (test nczn=097) 8.0 fL 9.4-12.3 NUCLEATED RED BLOOD CELLS (BEAKER) (test 0 /100 WBC 0-0 lybs=812) ANAEROBIC [id number] 01:01:00 Test Item Value Reference Range Comments CULTURE (BEAKER) (test jkod=0257) No anaerobes isolated ANAEROBIC [id number] 01:01:00 Test Item Value Reference Range Comments CULTURE (BEAKER) (test mlhx=9263) No anaerobes isolated RAD, CHEST, 1 VIEW, NON [id number] 16:03:00Reason for exam:->post picc line insertion Should this be performed at the bedside?->YesFINAL REPORT Two frontal chest images Discussion: Right PICC line extends to the cavoatrial junction level. Bilateral interstitial opacities probably represent edema perhaps withsuperimposed atelectasis. Correlate clinically for infection. No gross effusion or pneumothorax. Signed: Mckayla Hargrove MDReport Verified Date/Time: 04/24/2017 16:03:24 Reading Location: [facility] B1 C013W Consult Reading Room TISSUE [id number] 11:39:00Surgical Pathology Report Case: [id number] Authorizing Provider: Cherelle Christina MD Collected: 2016 Ordering Location: [address] Received : 04/21/2017 0952 Service Pathologist: Franchesca Mccauley MD Specimen: Bone, Biopsy/Curettings, Left middle finger bone biopsy LEFT MIDDLE FINGER, BONE, BIOPSY: - OSTEOMYELITIS - ABSCESS - NEGATIVE FOR MALIGNANCY - CORRELATION WITH CULTURE STUDIES RECOMMENDED Signing Pathologist Direct Phone Line: [phone] at 11: 39 [id number]; [id number] Left middle finger bone biopsyThe specimen is received in a fluidless container labeled with the patient's information and labeled "left middle finger bone biopsy" and consists of two ragged fragments of escamilla-red bone measuring 0.4and 0.5 cm, submitted entirely in A1 for decalcification. CG/ew PERFORMEDCBC W/PLT COUNT & AUTO [id number] 21:28:00 Test Item Value Reference Range Comments WHITE BLOOD CELL COUNT (BEAKER) (test erkj=824) 8.4 K/ L 3.5-10.5 RED BLOOD CELL COUNT (BEAKER) (test hehb=986) 3.21 M/ L 3.93-5.22 HEMOGLOBIN (BEAKER) (test yirq=423) 9.2 GM/DL 11.2-15.7 HEMATOCRIT (BEAKER) (test jckl=132) 28.7 % 34.1-44.9 MEAN CORPUSCULAR VOLUME (BEAKER) (test bhmi=180) 89.4 fL 79.4-94.8 MEAN CORPUSCULAR HEMOGLOBIN (BEAKER) (test 28.7 pg 25.6-32.2 vgkc=793) MEAN CORPUSCULAR HEMOGLOBIN CONC (BEAKER) (test 32.1 GM/DL 32.2-35.5 yjbo=523) RED CELL DISTRIBUTION WIDTH (BEAKER) (test 14.2 % 11.7-14.4 hssf=136) PLATELET COUNT (BEAKER) (test ccub=337) 628 K/CU MM 150-450 MEAN PLATELET VOLUME (BEAKER) (test rdwx=320) 8.3 fL 9.4-12.3 NUCLEATED RED BLOOD CELLS (BEAKER) (test 0 /100 WBC 0-0 dlpo=564) NEUTROPHILS RELATIVE PERCENT (BEAKER) (test 69 % vgry=066) LYMPHOCYTES RELATIVE PERCENT (BEAKER) (test 16 % zlpj=235) MONOCYTES RELATIVE PERCENT (BEAKER) (test 10 % gfom=712) EOSINOPHILS RELATIVE PERCENT (BEAKER) (test 4 % afzv=041) BASOPHILS RELATIVE PERCENT (BEAKER) (test 1 % qjbr=031) NEUTROPHILS ABSOLUTE COUNT (BEAKER) (test 5.74 K/ L 1.56-6.13 ooxq=246) LYMPHOCYTES ABSOLUTE COUNT (BEAKER) (test 1.37 K/ L 1.18-3.74 awsc=699) MONOCYTES ABSOLUTE COUNT (BEAKER) (test 0.82 K/ L 0.24-0.36 ghic=538) EOSINOPHILS ABSOLUTE COUNT (BEAKER) (test 0.33 K/ L 0.04-0.36 frvz=067) BASOPHILS ABSOLUTE COUNT (BEAKER) (test 0.04 K/ L 0.01-0.08 udbd=330) IMMATURE GRANULOCYTES-RELATIVE PERCENT (BEAKER) 1 % 0-1 (test yolo=7973) BASIC METABOLIC [id number] 21:13:00 Test Item Value Reference Range Comments SODIUM (BEAKER) (test 134 meq/L 136-145 ghza=450) POTASSIUM (BEAKER) (test 4.1 meq/L 3.5-5.1 ftfo=305) CHLORIDE (BEAKER) (test 106 meq/L 98-107 ilfl=468) CO2 (BEAKER) (test 22 meq/L 22-29 rtrp=860) BLOOD UREA NITROGEN 17 mg/dL 7-21 (BEAKER) (test hnll=861) CREATININE (BEAKER) (test 0.68 mg/dL 0.57-1.25 qaav=787) GLUCOSE RANDOM (BEAKER) 119 mg/dL 70-105 (test trvu=835) CALCIUM (BEAKER) (test 8.3 mg/dL 8.4-10.2 hyjs=430) EGFR (BEAKER) (test 83 mL/min/1.73 sq m ESTIMATED GFR IS NOT ugrj=5572) ACCURATE CREATININE CLEARANCE IN PREDICTING GLOMERULAR FILTRATION RATE. ESTIMATED GFR IS NOT APPLICABLE FOR DIALYSIS PATIENTS. VANCOMYCIN LEVEL, [id number] 21:11:00 Test Item Value Reference Range Comments VANCOMYCIN TROUGH (BEAKER) (test qezv=734) 22.5 ug/mL 10.0-20.0 WOUND CULTURE + GRAM [id number] 07:33:00 Test Item Value Reference Range Comments CULTURE (BEAKER) 4+ Viridans Streptococcus (test rgsn=5949) GRAM STAIN RESULT 4+ WBCs (BEAKER) (test vkvt=1094) GRAM STAIN RESULT 1+ gram positive cocci (BEAKER) (test in chains, pairs and mwex=70737) clusters VITAMIN [id number] 05:29:00 Test Item Value Reference Range Comments VITAMIN B12 (BEAKER) (test afqx=946) 196 pg/mL 213-816 [id number] 05:29:00 Test Item Value Reference Range Comments FERRITIN (BEAKER) (test jxbv=111) 182 ng/mL 5-275 IRON, TIBC, % SAT. (WITHOUT FERRITIN)2017-04-22 05:10:00 Test Item Value Reference Range Comments IRON (BEAKER) (test himg=386) 36 ug/dL 40-160 TOTAL IRON BINDING CAPACITY (BEAKER) (test 185 ug/dL 250-450 ydur=970) IRON % SATURATION (2) (BEAKER) (test crlo=2882) 19 % 20-55 BASIC METABOLIC [id number] 05:02:00 Test Item Value Reference Range Comments SODIUM (BEAKER) (test 137 meq/L 136-145 bamh=824) POTASSIUM (BEAKER) (test 4.2 meq/L 3.5-5.1 plwq=142) CHLORIDE (BEAKER) (test 111 meq/L 98-107 dvjg=184) CO2 (BEAKER) (test 21 meq/L 22-29 ubvn=253) BLOOD UREA NITROGEN 21 mg/dL 7-21 (BEAKER) (test zfop=837) CREATININE (BEAKER) (test 0.72 mg/dL 0.57-1.25 rupc=473) GLUCOSE RANDOM (BEAKER) 101 mg/dL 70-105 (test comz=615) CALCIUM (BEAKER) (test 8.4 mg/dL 8.4-10.2 xjvh=006) EGFR (BEAKER) (test 78 mL/min/1.73 sq m ESTIMATED GFR IS NOT seiw=1573) ACCURATE CREATININE CLEARANCE IN PREDICTING GLOMERULAR FILTRATION RATE. ESTIMATED GFR IS NOT APPLICABLE FOR DIALYSIS PATIENTS. CBC W/PLT COUNT & AUTO [id number] 04:55:00 Test Item Value Reference Range Comments WHITE BLOOD CELL COUNT (BEAKER) (test cals=211) 8.1 K/ L 3.5-10.5 RED BLOOD CELL COUNT (BEAKER) (test kwfe=777) 3.08 M/ L 3.93-5.22 HEMOGLOBIN (BEAKER) (test bvhu=333) 8.9 GM/DL 11.2-15.7 HEMATOCRIT (BEAKER) (test pmbm=577) 28.0 % 34.1-44.9 MEAN CORPUSCULAR VOLUME (BEAKER) (test mxww=115) 90.9 fL 79.4-94.8 MEAN CORPUSCULAR HEMOGLOBIN (BEAKER) (test 28.9 pg 25.6-32.2 xqrx=185) MEAN CORPUSCULAR HEMOGLOBIN CONC (BEAKER) (test 31.8 GM/DL 32.2-35.5 pdxh=497) RED CELL DISTRIBUTION WIDTH (BEAKER) (test 14.3 % 11.7-14.4 tfkk=746) PLATELET COUNT (BEAKER) (test fzvl=981) 541 K/CU MM 150-450 MEAN PLATELET VOLUME (BEAKER) (test goua=081) 8.5 fL 9.4-12.3 NUCLEATED RED BLOOD CELLS (BEAKER) (test 0 /100 WBC 0-0 jchr=622) NEUTROPHILS RELATIVE PERCENT (BEAKER) (test 69 % nhrq=573) LYMPHOCYTES RELATIVE PERCENT (BEAKER) (test 19 % vcjs=318) MONOCYTES RELATIVE PERCENT (BEAKER) (test 10 % gxdr=833) EOSINOPHILS RELATIVE PERCENT (BEAKER) (test 1 % nftv=007) BASOPHILS RELATIVE PERCENT (BEAKER) (test 0 % qkfd=330) NEUTROPHILS ABSOLUTE COUNT (BEAKER) (test 5.55 K/ L 1.56-6.13 pilf=585) LYMPHOCYTES ABSOLUTE COUNT (BEAKER) (test 1.57 K/ L 1.18-3.74 oxzw=191) MONOCYTES ABSOLUTE COUNT (BEAKER) (test 0.80 K/ L 0.24-0.36 nhir=897) EOSINOPHILS ABSOLUTE COUNT (BEAKER) (test 0.09 K/ L 0.04-0.36 bihc=960) BASOPHILS ABSOLUTE COUNT (BEAKER) (test 0.02 K/ L 0.01-0.08 ycxw=678) IMMATURE GRANULOCYTES-RELATIVE PERCENT (BEAKER) 1 % 0-1 (test jnmj=2764) VANCOMYCIN LEVEL, [id number] 21:46:00 Test Item Value Reference Range Comments VANCOMYCIN TROUGH (BEAKER) (test xivu=512) 18.0 ug/mL 10.0-20.0 SPIN/CONCENTRATION [id number] 13:53:00 Test Item Value Reference Range Comments CONCENTRATION CHARGED (BEAKER) (test pdbc=9911) Done SPIN/CONCENTRATION [id number] 13:52:00 Test Item Value Reference Range Comments CONCENTRATION CHARGED (BEAKER) (test wpik=6635) Done BASIC METABOLIC [id number] 11:02:00 Test Item Value Reference Range Comments SODIUM (BEAKER) (test 136 meq/L 136-145 mtxc=010) POTASSIUM (BEAKER) (test 4.5 meq/L 3.5-5.1 epwo=625) CHLORIDE (BEAKER) (test 109 meq/L 98-107 qfwa=950) CO2 (BEAKER) (test 22 meq/L 22-29 ayxq=891) BLOOD UREA NITROGEN 22 mg/dL 7-21 (BEAKER) (test ltiw=203) CREATININE (BEAKER) (test 0.76 mg/dL 0.57-1.25 wlbt=837) GLUCOSE RANDOM (BEAKER) 133 mg/dL 70-105 (test xfua=819) CALCIUM (BEAKER) (test 8.6 mg/dL 8.4-10.2 qqwz=385) EGFR (BEAKER) (test 73 mL/min/1.73 sq m ESTIMATED GFR IS NOT bjfj=8393) ACCURATE CREATININE CLEARANCE IN PREDICTING GLOMERULAR FILTRATION RATE. ESTIMATED GFR IS NOT APPLICABLE FOR DIALYSIS PATIENTS. CBC W/PLT COUNT & AUTO [id number] 10:36:00 Test Item Value Reference Range Comments WHITE BLOOD CELL COUNT (BEAKER) (test jxhz=641) 10.5 K/ L 3.5-10.5 RED BLOOD CELL COUNT (BEAKER) (test eeil=571) 3.29 M/ L 3.93-5.22 HEMOGLOBIN (BEAKER) (test jscu=522) 9.7 GM/DL 11.2-15.7 HEMATOCRIT (BEAKER) (test atjw=069) 29.5 % 34.1-44.9 MEAN CORPUSCULAR VOLUME (BEAKER) (test jckt=037) 89.7 fL 79.4-94.8 MEAN CORPUSCULAR HEMOGLOBIN (BEAKER) (test 29.5 pg 25.6-32.2 uqec=720) MEAN CORPUSCULAR HEMOGLOBIN CONC (BEAKER) (test 32.9 GM/DL 32.2-35.5 aney=195) RED CELL DISTRIBUTION WIDTH (BEAKER) (test 14.2 % 11.7-14.4 vkmx=968) PLATELET COUNT (BEAKER) (test bkbr=942) 530 K/CU MM 150-450 MEAN PLATELET VOLUME (BEAKER) (test nbzc=627) 9.0 fL 9.4-12.3 NUCLEATED RED BLOOD CELLS (BEAKER) (test 0 /100 WBC 0-0 xekb=637) NEUTROPHILS RELATIVE PERCENT (BEAKER) (test 89 % owtf=257) LYMPHOCYTES RELATIVE PERCENT (BEAKER) (test 4 % erfb=364) MONOCYTES RELATIVE PERCENT (BEAKER) (test 7 % qegd=511) EOSINOPHILS RELATIVE PERCENT (BEAKER) (test 0 % tqow=223) BASOPHILS RELATIVE PERCENT (BEAKER) (test 0 % mkyj=833) NEUTROPHILS ABSOLUTE COUNT (BEAKER) (test 9.36 K/ L 1.56-6.13 etlo=582) LYMPHOCYTES ABSOLUTE COUNT (BEAKER) (test 0.38 K/ L 1.18-3.74 cgyo=764) MONOCYTES ABSOLUTE COUNT (BEAKER) (test 0.73 K/ L 0.24-0.36 dczb=864) EOSINOPHILS ABSOLUTE COUNT (BEAKER) (test 0.00 K/ L 0.04-0.36 kvdm=945) BASOPHILS ABSOLUTE COUNT (BEAKER) (test 0.02 K/ L 0.01-0.08 zgpn=296) IMMATURE GRANULOCYTES-RELATIVE PERCENT (BEAKER) 1 % 0-1 (test kqhp=1226) VANCOMYCIN LEVEL, [id number] 23:26:00 Test Item Value Reference Range Comments VANCOMYCIN TROUGH (BEAKER) (test wbif=434) 24.2 ug/mL 10.0-20.0 CBC W/PLT COUNT & AUTO [id number] 11:10:00 Test Item Value Reference Range Comments WHITE BLOOD CELL COUNT (BEAKER) (test yzfw=960) 8.5 K/ L 3.5-10.5 RED BLOOD CELL COUNT (BEAKER) (test fell=406) 3.18 M/ L 3.93-5.22 HEMOGLOBIN (BEAKER) (test bcci=582) 9.2 GM/DL 11.2-15.7 HEMATOCRIT (BEAKER) (test vldk=747) 28.5 % 34.1-44.9 MEAN CORPUSCULAR VOLUME (BEAKER) (test rpyv=667) 89.6 fL 79.4-94.8 MEAN CORPUSCULAR HEMOGLOBIN (BEAKER) (test 28.9 pg 25.6-32.2 kyfg=918) MEAN CORPUSCULAR HEMOGLOBIN CONC (BEAKER) (test 32.3 GM/DL 32.2-35.5 vsgl=653) RED CELL DISTRIBUTION WIDTH (BEAKER) (test 14.4 % 11.7-14.4 ibzn=713) PLATELET COUNT (BEAKER) (test wedy=813) 478 K/CU MM 150-450 MEAN PLATELET VOLUME (BEAKER) (test bski=885) 9.0 fL 9.4-12.3 NUCLEATED RED BLOOD CELLS (BEAKER) (test 0 /100 WBC 0-0 qfbv=401) NEUTROPHILS RELATIVE PERCENT (BEAKER) (test 82 % ilzy=489) LYMPHOCYTES RELATIVE PERCENT (BEAKER) (test 10 % yowv=074) MONOCYTES RELATIVE PERCENT (BEAKER) (test 5 % qaba=857) EOSINOPHILS RELATIVE PERCENT (BEAKER) (test 1 % zeyu=243) BASOPHILS RELATIVE PERCENT (BEAKER) (test 0 % yjmr=027) NEUTROPHILS ABSOLUTE COUNT (BEAKER) (test 7.01 K/ L 1.56-6.13 xjyj=067) LYMPHOCYTES ABSOLUTE COUNT (BEAKER) (test 0.84 K/ L 1.18-3.74 mekp=614) MONOCYTES ABSOLUTE COUNT (BEAKER) (test 0.46 K/ L 0.24-0.36 ydxi=081) EOSINOPHILS ABSOLUTE COUNT (BEAKER) (test 0.10 K/ L 0.04-0.36 zfgy=985) BASOPHILS ABSOLUTE COUNT (BEAKER) (test 0.03 K/ L 0.01-0.08 tfrt=929) IMMATURE GRANULOCYTES-RELATIVE PERCENT (BEAKER) 1 % 0-1 (test gois=9788) BASIC METABOLIC [id number] 11:07:00 Test Item Value Reference Range Comments SODIUM (BEAKER) (test 133 meq/L 136-145 pswi=066) POTASSIUM (BEAKER) (test 3.9 meq/L 3.5-5.1 ceai=106) CHLORIDE (BEAKER) (test 106 meq/L 98-107 erxi=198) CO2 (BEAKER) (test 20 meq/L 22-29 sqtb=139) BLOOD UREA NITROGEN 30 mg/dL 7-21 (BEAKER) (test kaqe=479) CREATININE (BEAKER) (test 0.86 mg/dL 0.57-1.25 ctfx=956) GLUCOSE RANDOM (BEAKER) 126 mg/dL 70-105 (test zvmu=099) CALCIUM (BEAKER) (test 8.6 mg/dL 8.4-10.2 vmyg=961) EGFR (BEAKER) (test 63 mL/min/1.73 sq m ESTIMATED GFR IS NOT jvvg=1442) ACCURATE CREATININE CLEARANCE IN PREDICTING GLOMERULAR FILTRATION RATE. ESTIMATED GFR IS NOT APPLICABLE FOR DIALYSIS PATIENTS. MR, EXTREMITY, UPPER, [id number] 01:17:00Reason for exam:->swelling edema of handFINAL REPORT [...] MDReport Verified Date/Time: 04/20/2017 01:17:11 Reading Location: [facility] C013X Ortho Consult Reading Room SEDIMENTATION [id number] 18:28:00 Test Item Value Reference Range Comments SEDIMENTATION RATE, ERYTHROCYTE (BEAKER) (test 67 mm/HR 0-40 mooa=323) RAD, FINGERS, MIN 2 VIEWS, [id number] 12:15:00Reason for exam:->swelling , edemaShould this be [...] MDReport Verified Date/Time: 04/19/2017 12:15:32 Reading Location: [facility] C013Y CT Body Reading Room 12: 15 PMCBC W/PLT COUNT & AUTO [id number] 07:32:00 Test Item Value Reference Range Comments WHITE BLOOD CELL COUNT (BEAKER) (test nmee=186) 12.5 K/ L 3.5-10.5 RED BLOOD CELL COUNT (BEAKER) (test lipr=564) 3.19 M/ L 3.93-5.22 HEMOGLOBIN (BEAKER) (test xwhk=147) 9.3 GM/DL 11.2-15.7 HEMATOCRIT (BEAKER) (test wzqg=873) 29.3 % 34.1-44.9 MEAN CORPUSCULAR VOLUME (BEAKER) (test jfyu=130) 91.8 fL 79.4-94.8 MEAN CORPUSCULAR HEMOGLOBIN (BEAKER) (test 29.2 pg 25.6-32.2 jrei=866) MEAN CORPUSCULAR HEMOGLOBIN CONC (BEAKER) (test 31.7 GM/DL 32.2-35.5 fvnq=524) RED CELL DISTRIBUTION WIDTH (BEAKER) (test 14.6 % 11.7-14.4 zsxe=937) PLATELET COUNT (BEAKER) (test wjml=471) 528 K/CU MM 150-450 MEAN PLATELET VOLUME (BEAKER) (test scdd=484) 9.7 fL 9.4-12.3 NUCLEATED RED BLOOD CELLS (BEAKER) (test 0 /100 WBC 0-0 ofvv=383) NEUTROPHILS RELATIVE PERCENT (BEAKER) (test 82 % neid=779) LYMPHOCYTES RELATIVE PERCENT (BEAKER) (test 7 % wctj=676) MONOCYTES RELATIVE PERCENT (BEAKER) (test 10 % khfe=650) EOSINOPHILS RELATIVE PERCENT (BEAKER) (test 0 % sjzw=262) BASOPHILS RELATIVE PERCENT (BEAKER) (test 0 % czwk=615) NEUTROPHILS ABSOLUTE COUNT (BEAKER) (test 10.29 K/ L 1.56-6.13 wrku=617) LYMPHOCYTES ABSOLUTE COUNT (BEAKER) (test 0.85 K/ L 1.18-3.74 wjfz=091) MONOCYTES ABSOLUTE COUNT (BEAKER) (test 1.22 K/ L 0.24-0.36 mgpd=664) EOSINOPHILS ABSOLUTE COUNT (BEAKER) (test 0.03 K/ L 0.04-0.36 jqzl=670) BASOPHILS ABSOLUTE COUNT (BEAKER) (test 0.04 K/ L 0.01-0.08 mydv=359) IMMATURE GRANULOCYTES-RELATIVE PERCENT (BEAKER) 1 % 0-1 (test qfsq=1889) BASIC METABOLIC [id number] 07:21:00 Test Item Value Reference Range Comments SODIUM (BEAKER) (test 133 meq/L 136-145 fqab=219) POTASSIUM (BEAKER) (test 4.1 meq/L 3.5-5.1 rpmw=799) CHLORIDE (BEAKER) (test 105 meq/L 98-107 usvk=803) CO2 (BEAKER) (test 20 meq/L 22-29 wpet=748) BLOOD UREA NITROGEN 28 mg/dL 7-21 (BEAKER) (test cgqz=453) CREATININE (BEAKER) (test 0.90 mg/dL 0.57-1.25 ould=183) GLUCOSE RANDOM (BEAKER) 104 mg/dL 70-105 (test scay=909) CALCIUM (BEAKER) (test 8.9 mg/dL 8.4-10.2 ubjh=494) EGFR (BEAKER) (test 60 mL/min/1.73 sq m ESTIMATED GFR IS NOT mect=2097) ACCURATE CREATININE CLEARANCE IN PREDICTING GLOMERULAR FILTRATION RATE. ESTIMATED GFR IS NOT APPLICABLE FOR DIALYSIS PATIENTS. C-REACTIVE [id number] 07:21:00 Test Item Value Reference Range Comments C-REACTIVE PROTEIN (ALIX) (test [id number]) 12.50 mg/dL 0.00-0.50
[2018-06-04] MEDS ORDERED: HYDROCODONE/APAP 10/325 TAB ONE (11:58)
[2018-06-04] MEDS ORDERED: LIDOCAINE 2% MPF 5 ML VIAL ONE (11:58)
[2018-06-04] MEDS ORDERED: LIDOCAINE 1% MPF 2 ML AMPULE ONE (12:00)
--- NOTE | 2018-06-04 12:43 | ER ---
Nurse's Notes [facility] Name: Brynn De Luna Age: 82 yrs Sex: Female : 1935 Arrival Date: 06/04/2018 Time: 09:54 Bed 25 Private MD: Diagnosis: Olecranon bursitis, right elbow Presentation: 06/04 10:06 Presenting complaint: Patient states: "this is like my 3rd time in here for the same aa5 thing". Pt c/o kylie elbow pain, denies injury. Pt states "my elbow is swollen". Transition of care: patient was not received from another setting of care. Onset of symptoms was 2017. Risk Assessment: Do you want to hurt yourself or someone else? Patient reports no desire to harm self or others. Initial Sepsis Screen: Does the patient meet any 2 criteria? No. Patient's initial sepsis screen is negative. Does the patient have a suspected source of infection? No. Patient's initial sepsis screen is negative. Care prior to arrival: None. 10:06 Method Of Arrival: Wheelchair aa5 10:06 Acuity: RUDI 4 aa5 Triage Assessment: 12:00 Injury Description:. iw Historical: - Allergies: 10:07 PENICILLINS; aa5 10:07 Sulfa (Sulfonamide Antibiotics); aa5 - PMHx: 10:07 Bladder Spasms; Hypertension; aa5 - PSHx: 10:07 Cholecystectomy; aa5 - Immunization history:: Pneumococcal vaccine is not up to date, Flu vaccine is not up to date. - Social history:: Smoking status: Patient/guardian denies using tobacco. - Ebola Screening: : No symptoms or risks identified at this time. - Family history:: not pertinent. - Hospitalizations: : No recent hospitalization is reported. Screenin:40 Abuse screen: Denies threats or abuse. Denies injuries from another. Nutritional iw screening: No deficits noted. Tuberculosis screening: No symptoms or risk factors identified. Fall Risk None identified. Assessment: 11:32 General: Appears in no apparent distress. Behavior is calm, cooperative. Pain: iw Complains of pain in right elbow. 11:40 Neuro: Level of Consciousness is awake, alert, obeys commands, Oriented to person, iw place, time, situation. Cardiovascular: Patient's skin is warm and dry. Respiratory: Respiratory effort is even, unlabored, Respiratory pattern is regular, symmetrical. Derm: Skin is intact, is healthy with good turgor. Musculoskeletal: Capillary refill < 3 seconds, Reports pain in right elbow. Vital Signs: 10:08 BP 155 / 71; Pulse 82; Resp 16 S; Temp 98.0(TE); Pulse Ox 98% ; Weight 68.04 kg (R); aa5 Height 5 ft. 4 in. (162.56 cm) (R); Pain 9/10; 10:08 Body Mass Index 25.75 (68.04 kg, 162.56 cm) aa5 ED Course: 09:54 Patient arrived in ED. aa5 10:07 Triage completed. aa5 10:07 Arm band placed on. aa5 11:19 Magda Sullivan RN is Primary Nurse. iw 11:35 Luis Alberto Ochoa MD is Attending Physician. rn 11:40 Patient has correct armband on for positive identification. iw 12:00 Assist provider with aspiration of right elbow using 18 gauge needle, fluid removed was iw bloody, Specimen sent to lab. Removed 10 ml's of fluid Set up for procedure. Performed by Luis Alberto Ochoa MD Dressed with 4X4s, Patient tolerated well. Patient did not have IV access during this emergency room visit. Administered Medications: 12:10 Drug: Palouse 10 mg-325 mg 1 tabs Route: PO; iw 12:30 Drug: Lidocaine (1 %) 1 vials Volume: 5 ml; Route: Infiltration; iw 12:45 Drug: Clindamycin 300 mg Route: PO; iw Outcome: 12:42 Discharge ordered by MD. rn 12:55 Discharged to home via wheelchair, with family. iw 12:55 Condition: good 12:55 Discharge instructions given to patient, family, Instructed on discharge instructions, follow up and referral plans. medication usage, Demonstrated understanding of instructions, follow-up care, medications, Prescriptions given X 2. 12:57 Patient left the ED. iw Signatures: Magda Sullivan RN RN iw Luis Alberto Ochoa MD MD rn Calderon, Audri, RN RN aa5 Corrections: (The following items were deleted from the chart) 10:07 10:06 Presenting complaint: Patient states: "this is like my 3rd time in here for the aa5 same thing". Pt c/o kylie elbow pain, denies injury. aa5
--- NOTE | 2018-06-04 12:43 | EDPHYS ---
Physician Documentation [facility] Name: Brynn De Luna Age: 82 yrs Sex: Female : 1935 Arrival Date: 06/04/2018 Time: 09:54 Bed 25 Private MD: ED Physician Luis Alberto Ochoa HPI: 06/04 11:45 This 82 yrs old Female presents to ER via Wheelchair with complaints of Elbow rn Injury. 11:45 The patient or guardian complains of pain, swelling. The complaints affect the right rn elbow. Onset: The symptoms/episode began/occurred at an unknown time. Severity of symptoms: At their worst the symptoms were moderate, in the emergency department the symptoms are unchanged. The patient has experienced a previous episode. I have seen her before for left olecranon bursitis, uses elbows frequently to get up from wheelchair, no fall, no fever, now right elbow swollen and painful.. Historical: - Allergies: 10:07 PENICILLINS; aa5 10:07 Sulfa (Sulfonamide Antibiotics); aa5 - PMHx: 10:07 Bladder Spasms; Hypertension; aa5 - PSHx: 10:07 Cholecystectomy; aa5 - Immunization history:: Pneumococcal vaccine is not up to date, Flu vaccine is not up to date. - Social history:: Smoking status: Patient/guardian denies using tobacco. - Ebola Screening: : No symptoms or risks identified at this time. - Family history:: not pertinent. - Hospitalizations: : No recent hospitalization is reported. ROS: 11:45 Constitutional: Negative for fever, chills, and weight loss, MS/Extremity: + right rn elbow pain and swelling Exam: 11:45 Constitutional: This is a well developed, well nourished patient who is awake, alert, rn and in no acute distress. MS/ Extremity: Pulses equal, no cyanosis. Neurovascular intact. Full, normal range of motion. Equal circumference. + right elbow with FROM, + 3cm fluctuant area in region of olecranon, + mild warmth with blanching erythema, no redness or warmth spreading from that region. Vital Signs: 10:08 BP 155 / 71; Pulse 82; Resp 16 S; Temp 98.0(TE); Pulse Ox 98% ; Weight 68.04 kg (R); aa5 Height 5 ft. 4 in. (162.56 cm) (R); Pain 9; 10:08 Body Mass Index 25.75 (68.04 kg, 162.56 cm) aa5 Procedures: 12:39 I \T\ D: Incision and drainage was performed for an abscess of the right right olecranon rn bursa Prepped with alcohol, Anesthetized with 3 ml's 1% Lidocaine. Incised with 22g needle. Drained moderate amount serosanguinous fluid. Dressing: right elbow the patient tolerated the procedure well, fluid sent to lab for gram stain and culture along with cell count. MDM: 11:35 Patient medically screened. rn 12:39 Differential diagnosis: olecranon bursitis. Data reviewed: vital signs, nurses notes, rn and as a result, I will discharge patient. 12:41 Counseling: I had a detailed discussion with the patient and/or guardian regarding: the rn historical points, exam findings, and any diagnostic results supporting the discharge/admit diagnosis, the need for outpatient follow up, to return to the emergency department if symptoms worsen or persist or if there are any questions or concerns that arise at home. Special discussion: I discussed with the patient/guardian in detail that at this point there is no indication for admission to the hospital. It is understood, however, that if the symptoms persist or worsen the patient needs to return immediately for re-evaluation. 06/04 12:46 Order name: Fluid Cell Count,Body rn 06/04 12:46 Order name: Body Fluid Culture rn Administered Medications: 12:10 Drug: Chester 10 mg-325 mg 1 tabs Route: PO; iw 12:30 Drug: Lidocaine (1 %) 1 vials Volume: 5 ml; Route: Infiltration; iw 12:45 Drug: Clindamycin 300 mg Route: PO; iw Disposition: 06/04/18 12:42 Discharged to Home. Impression: Olecranon bursitis, right elbow. - Condition is Stable. - Discharge Instructions: Elbow Bursitis. - Prescriptions for Clindamycin HCl 300 mg Oral Capsule - take 1 capsule by ORAL route every 6 hours for 10 days; 40 capsule. Ultram 50 mg Oral Tablet - take 1 tablet by ORAL route every 6 hours As needed; 15 tablet. - Medication Reconciliation Form, Thank You Letter, Antibiotic Education, Prescription Opioid Use form. - Follow up: Private Physician; When: As needed; Reason: Recheck today's complaints, Re-evaluation by your physician. - Problem is new. - Symptoms have improved. Signatures: Dispatcher [employer] Magda Abdi RN RN iw Nieto, Roman, MD MD rn Calderon, Audri, RN RN aa5 Corrections: (The following items were deleted from the chart) 12:57 12:42 06/04/2018 12:42 Discharged to Home. Impression: Olecranon bursitis, right elbow. iw Condition is Stable. Forms are Medication Reconciliation Form, Thank You Letter, Antibiotic Education, Prescription Opioid Use. Follow up: Private Physician; When: As needed; Reason: Recheck today's complaints, Re-evaluation by your physician. Problem is new. Symptoms have improved. rn
[2018-06-04] MEDS ORDERED: CLINDAMYCIN HCL 150 MG CAP ONE (12:56)
[2018-06-04 13:44] LABS: Body Fluid WBC 247 /mm^3
[2018-06-04 13:48] LABS: Body Fluid Source SYNOVIAL; Color of fluid Red (COLORLESS)
[2018-06-04 13:49] LABS: Appearance TURBID (CLEAR)
== END 2018-06-04 12:57 | disposition home or self-care (01) ==
LOC: ER 09:31
PROC: 0J9G0ZZ Drainage of Right Lower Arm Subcutaneous Tissue and Fascia, Open Approach (ICD-10-PCS; principal; 2018-06-04)
DX: M70.21 Olecranon bursitis, right elbow (principal); I10 Essential (primary) hypertension; Z88.0 Allergy status to penicillin; Z88.2 Allergy status to sulfonamides
CPT/HCPCS: 23930; 36415; 87070; 89050; 99284; J2001

== ENCOUNTER 2018-06-08 10:36 | Emergency (ER) | payer OTHER, MEDICARE ==
--- OUTSIDE RECORDS SUMMARY | 2018-06-08 10:37 | XMS REPORT | Clinical Summary ---
:1935 Author Organization [facility] Address [address] [place] [address] Care Team Providers Name Role Phone Unavailable [...] Not on file Results Not on fileafter 06/07/2017 Insurance Payer Benefit Plan / Group Subscriber ID Type Phone Address MEDICARE MEDICARE A B xxxxxxxxxx Medicare MCR SUPPLEMENT/INDIVIDUAL AARP/[facility] xxxxxxxxxxx [facility] (Home) [place] [address] Advance Directives For more information, please contact:[address] [phone] Code Status Date Activated Date Inactivated Comments Full Code 04/19/2017 4:27 AM 04/25/2017 4:42 PM This code status was determined by: Patient
--- OUTSIDE RECORDS SUMMARY | 2018-06-08 10:38 | XMS REPORT ---
:1935 [facility] [address] [place] [address] [place] [id number] Care Team Providers Name Role Phone CHERELLE [...] Value Reference Range Comments CULTURE (BEAKER) (test cnva=0693) No acid-fast bacilli isolated in 42 days AFB SMEAR (BEAKER) (test smax=306) No acid fast bacilli seen AFB CULTURE + [id number] 08:43:00 Test Item Value Reference Range Comments CULTURE (BEAKER) (test No acid-fast bacilli isolated dyya=7776) in 42 days AFB SMEAR (BEAKER) (test No acid fast bacilli seen medv=213) FUNGUS CULTURE + [id number] 12:11:00 Test Item Value Reference Range Comments CULTURE (BEAKER) (test No fungus isolated in 28 days bnem=8711) FUNGUS SMEAR (BEAKER) (test No fungi seen hkuh=1070) FUNGUS CULTURE + [id number] 12:11:00 Test Item Value Reference Range Comments CULTURE (BEAKER) (test No fungus isolated in 28 days gxus=2588) FUNGUS SMEAR (BEAKER) (test No fungi seen ipru=6536) SURGICALLY OBTAINED CULTURE + GRAM [id number] 09:50:00 Test Item Value Reference Range Comments CULTURE (BEAKER) (test From Broth Only mgle=4217) Streptococcus sanguis GRAM STAIN RESULT <1+ WBCs (BEAKER) (test zqan=1157) GRAM STAIN RESULT No organisms seen (BEAKER) (test ufgk=665770) SURGICALLY OBTAINED CULTURE + GRAM [id number] 09:06:00 Test Item Value Reference Range Comments CULTURE (BEAKER) (test 3+ Viridans jeih=6223) Streptococcusof a second type CULTURE (BEAKER) (test STAPHYLOCOCCUS 2+ Viridans jacm=4187) LUGDUNENSIS Streptococcus Clindamycin (test code=10) Erythromycin (test code=4) Levofloxacin (test code=22) Linezolid (test code=40) Nitrofurantoin (test code=23) Oxacillin (test code=14) Rifampin (test code=43) Tetracycline (test code=2) Trimethoprim + Sulfamethoxazole (test code=47) Vancomycin (test code=13) GRAM STAIN RESULT <1+ WBCs (BEAKER) (test fjxc=3204) GRAM STAIN RESULT No organisms seen (BEAKER) (test gfbn=844127) BASIC METABOLIC [id number] 08:28:00 Test Item Value Reference Range Comments SODIUM (BEAKER) (test 135 meq/L 136-145 zpno=415) POTASSIUM (BEAKER) (test 4.4 meq/L 3.5-5.1 ikkh=276) CHLORIDE (BEAKER) (test 106 meq/L 98-107 rguy=760) CO2 (BEAKER) (test 24 meq/L 22-29 jabq=089) BLOOD UREA NITROGEN 15 mg/dL 7-21 (BEAKER) (test gejr=912) CREATININE (BEAKER) (test 0.66 mg/dL 0.57-1.25 sqej=199) GLUCOSE RANDOM (BEAKER) 96 mg/dL 70-105 (test papl=060) CALCIUM (BEAKER) (test 8.5 mg/dL 8.4-10.2 dnea=902) EGFR (BEAKER) (test 86 mL/min/1.73 sq m ESTIMATED GFR IS NOT nakd=8828) ACCURATE CREATININE CLEARANCE IN PREDICTING GLOMERULAR FILTRATION RATE. ESTIMATED GFR IS NOT APPLICABLE FOR DIALYSIS PATIENTS. CBC (HEMOGRAM ONLY)2017-04-25 08:14:00 Test Item Value Reference Range Comments WHITE BLOOD CELL COUNT (BEAKER) (test fvty=659) 7.8 K/ L 3.5-10.5 RED BLOOD CELL COUNT (BEAKER) (test pzxt=808) 3.35 M/ L 3.93-5.22 HEMOGLOBIN (BEAKER) (test tssd=676) 9.5 GM/DL 11.2-15.7 HEMATOCRIT (BEAKER) (test bxtb=914) 29.5 % 34.1-44.9 MEAN CORPUSCULAR VOLUME (BEAKER) (test nlxf=115) 88.1 fL 79.4-94.8 MEAN CORPUSCULAR HEMOGLOBIN (BEAKER) (test 28.4 pg 25.6-32.2 kimz=277) MEAN CORPUSCULAR HEMOGLOBIN CONC (BEAKER) (test 32.2 GM/DL 32.2-35.5 less=644) RED CELL DISTRIBUTION WIDTH (BEAKER) (test 13.9 % 11.7-14.4 evlk=549) PLATELET COUNT (BEAKER) (test ulun=192) 569 K/CU MM 150-450 MEAN PLATELET VOLUME (BEAKER) (test gooq=448) 8.0 fL 9.4-12.3 NUCLEATED RED BLOOD CELLS (BEAKER) (test 0 /100 WBC 0-0 zmjw=956) ANAEROBIC [id number] 01:01:00 Test Item Value Reference Range Comments CULTURE (BEAKER) (test vrhb=5084) No anaerobes isolated ANAEROBIC [id number] 01:01:00 Test Item Value Reference Range Comments CULTURE (BEAKER) (test fxnz=9140) No anaerobes isolated RAD, CHEST, 1 VIEW, NON [id number] 16:03:00Reason for exam:->post picc line insertion Should this be performed at the bedside?->YesFINAL REPORT Two frontal chest images Discussion: Right PICC line extends to the cavoatrial junction level. Bilateral interstitial opacities probably represent edema perhaps withsuperimposed atelectasis. Correlate clinically for infection. No gross effusion or pneumothorax. Signed: Mckayla Hargrove Verified Date/Time: 04/24/2017 16:03:24 Reading Location: [facility] B1 C013W Consult Reading Room TISSUE [id number] 11:39:00Surgical Pathology Report Case: [id number] Authorizing Provider: Cherelle Christina MD Collected: 2016 Ordering Location: [address] Received : 04/21/2017 0952 Service Pathologist: Franchesca Mccauley MD Specimen: Bone, Biopsy/Curettings, Left middle finger bone biopsy LEFT MIDDLE FINGER, BONE, BIOPSY: - OSTEOMYELITIS - ABSCESS - NEGATIVE FOR MALIGNANCY - CORRELATION WITH CULTURE STUDIES RECOMMENDED Signing Pathologist Direct Phone Line: at 11: 39 [id number]; [id number] Left middle finger bone biopsyThe specimen is received in a fluidless container labeled with the patient's information and labeled "left middle finger bone biopsy" and consists of two ragged fragments of escamilla-red bone measuring 0.4and 0.5 cm, submitted entirely in A1 for decalcification. CG/ew PERFORMEDCBC W/PLT COUNT & AUTO [id number] 21:28:00 Test Item Value Reference Range Comments WHITE BLOOD CELL COUNT (BEAKER) (test xowv=291) 8.4 K/ L 3.5-10.5 RED BLOOD CELL COUNT (BEAKER) (test pdne=334) 3.21 M/ L 3.93-5.22 HEMOGLOBIN (BEAKER) (test tqpd=721) 9.2 GM/DL 11.2-15.7 HEMATOCRIT (BEAKER) (test kkgb=122) 28.7 % 34.1-44.9 MEAN CORPUSCULAR VOLUME (BEAKER) (test ecex=444) 89.4 fL 79.4-94.8 MEAN CORPUSCULAR HEMOGLOBIN (BEAKER) (test 28.7 pg 25.6-32.2 sjuq=285) MEAN CORPUSCULAR HEMOGLOBIN CONC (BEAKER) (test 32.1 GM/DL 32.2-35.5 mdds=576) RED CELL DISTRIBUTION WIDTH (BEAKER) (test 14.2 % 11.7-14.4 pgnq=127) PLATELET COUNT (BEAKER) (test axhw=283) 628 K/CU MM 150-450 MEAN PLATELET VOLUME (BEAKER) (test qopq=767) 8.3 fL 9.4-12.3 NUCLEATED RED BLOOD CELLS (BEAKER) (test 0 /100 WBC 0-0 khsg=519) NEUTROPHILS RELATIVE PERCENT (BEAKER) (test 69 % cwyz=656) LYMPHOCYTES RELATIVE PERCENT (BEAKER) (test 16 % hijy=843) MONOCYTES RELATIVE PERCENT (BEAKER) (test 10 % wayg=624) EOSINOPHILS RELATIVE PERCENT (BEAKER) (test 4 % fhpy=245) BASOPHILS RELATIVE PERCENT (BEAKER) (test 1 % rlev=579) NEUTROPHILS ABSOLUTE COUNT (BEAKER) (test 5.74 K/ L 1.56-6.13 eoih=965) LYMPHOCYTES ABSOLUTE COUNT (BEAKER) (test 1.37 K/ L 1.18-3.74 hncy=886) MONOCYTES ABSOLUTE COUNT (BEAKER) (test 0.82 K/ L 0.24-0.36 buxi=825) EOSINOPHILS ABSOLUTE COUNT (BEAKER) (test 0.33 K/ L 0.04-0.36 exwd=379) BASOPHILS ABSOLUTE COUNT (BEAKER) (test 0.04 K/ L 0.01-0.08 svey=961) IMMATURE GRANULOCYTES-RELATIVE PERCENT (BEAKER) 1 % 0-1 (test goea=5912) BASIC METABOLIC [id number] 21:13:00 Test Item Value Reference Range Comments SODIUM (BEAKER) (test 134 meq/L 136-145 xxey=141) POTASSIUM (BEAKER) (test 4.1 meq/L 3.5-5.1 yaqq=574) CHLORIDE (BEAKER) (test 106 meq/L 98-107 sibe=153) CO2 (BEAKER) (test 22 meq/L 22-29 tevj=888) BLOOD UREA NITROGEN 17 mg/dL 7-21 (BEAKER) (test ukmn=541) CREATININE (BEAKER) (test 0.68 mg/dL 0.57-1.25 vthq=178) GLUCOSE RANDOM (BEAKER) 119 mg/dL 70-105 (test crbi=756) CALCIUM (BEAKER) (test 8.3 mg/dL 8.4-10.2 oaxl=222) EGFR (BEAKER) (test 83 mL/min/1.73 sq m ESTIMATED GFR IS NOT gqux=4033) ACCURATE CREATININE CLEARANCE IN PREDICTING GLOMERULAR FILTRATION RATE. ESTIMATED GFR IS NOT APPLICABLE FOR DIALYSIS PATIENTS. VANCOMYCIN LEVEL, [id number] 21:11:00 Test Item Value Reference Range Comments VANCOMYCIN TROUGH (BEAKER) (test gkaz=865) 22.5 ug/mL 10.0-20.0 WOUND CULTURE + GRAM [id number] 07:33:00 Test Item Value Reference Range Comments CULTURE (BEAKER) 4+ Viridans Streptococcus (test qmru=0901) GRAM STAIN RESULT 4+ WBCs (BEAKER) (test jpgz=8376) GRAM STAIN RESULT 1+ gram positive cocci (BEAKER) (test in chains, pairs and dorg=70517) clusters VITAMIN [id number] 05:29:00 Test Item Value Reference Range Comments VITAMIN B12 (BEAKER) (test mkeg=397) 196 pg/mL 213-816 [id number] 05:29:00 Test Item Value Reference Range Comments FERRITIN (BEAKER) (test hiyu=728) 182 ng/mL 5-275 IRON, TIBC, % SAT. (WITHOUT FERRITIN)2017-04-22 05:10:00 Test Item Value Reference Range Comments IRON (BEAKER) (test klqo=784) 36 ug/dL 40-160 TOTAL IRON BINDING CAPACITY (BEAKER) (test 185 ug/dL 250-450 efzj=708) IRON % SATURATION (2) (BEAKER) (test iyef=7113) 19 % 20-55 BASIC METABOLIC [id number] 05:02:00 Test Item Value Reference Range Comments SODIUM (BEAKER) (test 137 meq/L 136-145 whch=835) POTASSIUM (BEAKER) (test 4.2 meq/L 3.5-5.1 vdnt=862) CHLORIDE (BEAKER) (test 111 meq/L 98-107 bsor=881) CO2 (BEAKER) (test 21 meq/L 22-29 gyuj=538) BLOOD UREA NITROGEN 21 mg/dL 7-21 (BEAKER) (test gzqu=246) CREATININE (BEAKER) (test 0.72 mg/dL 0.57-1.25 vxis=449) GLUCOSE RANDOM (BEAKER) 101 mg/dL 70-105 (test jrbh=088) CALCIUM (BEAKER) (test 8.4 mg/dL 8.4-10.2 yrsq=542) EGFR (BEAKER) (test 78 mL/min/1.73 sq m ESTIMATED GFR IS NOT evhj=1835) ACCURATE CREATININE CLEARANCE IN PREDICTING GLOMERULAR FILTRATION RATE. ESTIMATED GFR IS NOT APPLICABLE FOR DIALYSIS PATIENTS. CBC W/PLT COUNT & AUTO [id number] 04:55:00 Test Item Value Reference Range Comments WHITE BLOOD CELL COUNT (BEAKER) (test acxu=671) 8.1 K/ L 3.5-10.5 RED BLOOD CELL COUNT (BEAKER) (test efqt=728) 3.08 M/ L 3.93-5.22 HEMOGLOBIN (BEAKER) (test ohze=398) 8.9 GM/DL 11.2-15.7 HEMATOCRIT (BEAKER) (test bvoq=419) 28.0 % 34.1-44.9 MEAN CORPUSCULAR VOLUME (BEAKER) (test qjtg=720) 90.9 fL 79.4-94.8 MEAN CORPUSCULAR HEMOGLOBIN (BEAKER) (test 28.9 pg 25.6-32.2 ugfs=205) MEAN CORPUSCULAR HEMOGLOBIN CONC (BEAKER) (test 31.8 GM/DL 32.2-35.5 vbbt=862) RED CELL DISTRIBUTION WIDTH (BEAKER) (test 14.3 % 11.7-14.4 yexo=143) PLATELET COUNT (BEAKER) (test hsth=775) 541 K/CU MM 150-450 MEAN PLATELET VOLUME (BEAKER) (test iplj=178) 8.5 fL 9.4-12.3 NUCLEATED RED BLOOD CELLS (BEAKER) (test 0 /100 WBC 0-0 ptjm=495) NEUTROPHILS RELATIVE PERCENT (BEAKER) (test 69 % blwi=488) LYMPHOCYTES RELATIVE PERCENT (BEAKER) (test 19 % zija=847) MONOCYTES RELATIVE PERCENT (BEAKER) (test 10 % mafj=287) EOSINOPHILS RELATIVE PERCENT (BEAKER) (test 1 % tcyi=763) BASOPHILS RELATIVE PERCENT (BEAKER) (test 0 % sxwi=914) NEUTROPHILS ABSOLUTE COUNT (BEAKER) (test 5.55 K/ L 1.56-6.13 cwvp=483) LYMPHOCYTES ABSOLUTE COUNT (BEAKER) (test 1.57 K/ L 1.18-3.74 ikus=689) MONOCYTES ABSOLUTE COUNT (BEAKER) (test 0.80 K/ L 0.24-0.36 smbl=817) EOSINOPHILS ABSOLUTE COUNT (BEAKER) (test 0.09 K/ L 0.04-0.36 nyuq=852) BASOPHILS ABSOLUTE COUNT (BEAKER) (test 0.02 K/ L 0.01-0.08 hgpz=329) IMMATURE GRANULOCYTES-RELATIVE PERCENT (BEAKER) 1 % 0-1 (test twiu=3643) VANCOMYCIN LEVEL, [id number] 21:46:00 Test Item Value Reference Range Comments VANCOMYCIN TROUGH (BEAKER) (test quhg=104) 18.0 ug/mL 10.0-20.0 SPIN/CONCENTRATION [id number] 13:53:00 Test Item Value Reference Range Comments CONCENTRATION CHARGED (BEAKER) (test jtaf=6351) Done SPIN/CONCENTRATION [id number] 13:52:00 Test Item Value Reference Range Comments CONCENTRATION CHARGED (BEAKER) (test rnqz=7867) Done BASIC METABOLIC [id number] 11:02:00 Test Item Value Reference Range Comments SODIUM (BEAKER) (test 136 meq/L 136-145 zbly=647) POTASSIUM (BEAKER) (test 4.5 meq/L 3.5-5.1 tfhq=525) CHLORIDE (BEAKER) (test 109 meq/L 98-107 nzys=940) CO2 (BEAKER) (test 22 meq/L 22-29 yfrw=178) BLOOD UREA NITROGEN 22 mg/dL 7-21 (BEAKER) (test qbmd=824) CREATININE (BEAKER) (test 0.76 mg/dL 0.57-1.25 assh=172) GLUCOSE RANDOM (BEAKER) 133 mg/dL 70-105 (test ttff=802) CALCIUM (BEAKER) (test 8.6 mg/dL 8.4-10.2 lhnn=511) EGFR (BEAKER) (test 73 mL/min/1.73 sq m ESTIMATED GFR IS NOT xdpo=4360) ACCURATE CREATININE CLEARANCE IN PREDICTING GLOMERULAR FILTRATION RATE. ESTIMATED GFR IS NOT APPLICABLE FOR DIALYSIS PATIENTS. CBC W/PLT COUNT & AUTO [id number] 10:36:00 Test Item Value Reference Range Comments WHITE BLOOD CELL COUNT (BEAKER) (test cktz=900) 10.5 K/ L 3.5-10.5 RED BLOOD CELL COUNT (BEAKER) (test zjbi=644) 3.29 M/ L 3.93-5.22 HEMOGLOBIN (BEAKER) (test cayp=061) 9.7 GM/DL 11.2-15.7 HEMATOCRIT (BEAKER) (test ocvb=269) 29.5 % 34.1-44.9 MEAN CORPUSCULAR VOLUME (BEAKER) (test gtyi=444) 89.7 fL 79.4-94.8 MEAN CORPUSCULAR HEMOGLOBIN (BEAKER) (test 29.5 pg 25.6-32.2 qtsx=439) MEAN CORPUSCULAR HEMOGLOBIN CONC (BEAKER) (test 32.9 GM/DL 32.2-35.5 xvlq=087) RED CELL DISTRIBUTION WIDTH (BEAKER) (test 14.2 % 11.7-14.4 bgqk=204) PLATELET COUNT (BEAKER) (test wplq=057) 530 K/CU MM 150-450 MEAN PLATELET VOLUME (BEAKER) (test fhaz=191) 9.0 fL 9.4-12.3 NUCLEATED RED BLOOD CELLS (BEAKER) (test 0 /100 WBC 0-0 tilq=776) NEUTROPHILS RELATIVE PERCENT (BEAKER) (test 89 % vimv=803) LYMPHOCYTES RELATIVE PERCENT (BEAKER) (test 4 % uqzf=555) MONOCYTES RELATIVE PERCENT (BEAKER) (test 7 % ocjv=268) EOSINOPHILS RELATIVE PERCENT (BEAKER) (test 0 % edoh=107) BASOPHILS RELATIVE PERCENT (BEAKER) (test 0 % ijfu=387) NEUTROPHILS ABSOLUTE COUNT (BEAKER) (test 9.36 K/ L 1.56-6.13 pezt=061) LYMPHOCYTES ABSOLUTE COUNT (BEAKER) (test 0.38 K/ L 1.18-3.74 kqbj=543) MONOCYTES ABSOLUTE COUNT (BEAKER) (test 0.73 K/ L 0.24-0.36 gjjl=947) EOSINOPHILS ABSOLUTE COUNT (BEAKER) (test 0.00 K/ L 0.04-0.36 llqz=798) BASOPHILS ABSOLUTE COUNT (BEAKER) (test 0.02 K/ L 0.01-0.08 ckie=159) IMMATURE GRANULOCYTES-RELATIVE PERCENT (BEAKER) 1 % 0-1 (test ombv=1815) VANCOMYCIN LEVEL, [id number] 23:26:00 Test Item Value Reference Range Comments VANCOMYCIN TROUGH (BEAKER) (test xegb=891) 24.2 ug/mL 10.0-20.0 CBC W/PLT COUNT & AUTO [id number] 11:10:00 Test Item Value Reference Range Comments WHITE BLOOD CELL COUNT (BEAKER) (test qopv=431) 8.5 K/ L 3.5-10.5 RED BLOOD CELL COUNT (BEAKER) (test zcst=975) 3.18 M/ L 3.93-5.22 HEMOGLOBIN (BEAKER) (test ctge=938) 9.2 GM/DL 11.2-15.7 HEMATOCRIT (BEAKER) (test lzul=737) 28.5 % 34.1-44.9 MEAN CORPUSCULAR VOLUME (BEAKER) (test nvml=249) 89.6 fL 79.4-94.8 MEAN CORPUSCULAR HEMOGLOBIN (BEAKER) (test 28.9 pg 25.6-32.2 jqfr=761) MEAN CORPUSCULAR HEMOGLOBIN CONC (BEAKER) (test 32.3 GM/DL 32.2-35.5 ztxo=457) RED CELL DISTRIBUTION WIDTH (BEAKER) (test 14.4 % 11.7-14.4 ehoy=642) PLATELET COUNT (BEAKER) (test rdub=424) 478 K/CU MM 150-450 MEAN PLATELET VOLUME (BEAKER) (test dagp=359) 9.0 fL 9.4-12.3 NUCLEATED RED BLOOD CELLS (BEAKER) (test 0 /100 WBC 0-0 fgrd=271) NEUTROPHILS RELATIVE PERCENT (BEAKER) (test 82 % tutz=459) LYMPHOCYTES RELATIVE PERCENT (BEAKER) (test 10 % mnew=201) MONOCYTES RELATIVE PERCENT (BEAKER) (test 5 % tqlj=491) EOSINOPHILS RELATIVE PERCENT (BEAKER) (test 1 % lwpr=137) BASOPHILS RELATIVE PERCENT (BEAKER) (test 0 % oity=909) NEUTROPHILS ABSOLUTE COUNT (BEAKER) (test 7.01 K/ L 1.56-6.13 twml=201) LYMPHOCYTES ABSOLUTE COUNT (BEAKER) (test 0.84 K/ L 1.18-3.74 whbe=920) MONOCYTES ABSOLUTE COUNT (BEAKER) (test 0.46 K/ L 0.24-0.36 ekho=088) EOSINOPHILS ABSOLUTE COUNT (BEAKER) (test 0.10 K/ L 0.04-0.36 cgqj=505) BASOPHILS ABSOLUTE COUNT (BEAKER) (test 0.03 K/ L 0.01-0.08 cbin=599) IMMATURE GRANULOCYTES-RELATIVE PERCENT (BEAKER) 1 % 0-1 (test gekp=8216) BASIC METABOLIC [id number] 11:07:00 Test Item Value Reference Range Comments SODIUM (BEAKER) (test 133 meq/L 136-145 mmnj=236) POTASSIUM (BEAKER) (test 3.9 meq/L 3.5-5.1 njsm=753) CHLORIDE (BEAKER) (test 106 meq/L 98-107 hqgt=456) CO2 (BEAKER) (test 20 meq/L 22-29 xsxp=922) BLOOD UREA NITROGEN 30 mg/dL 7-21 (BEAKER) (test wmpp=218) CREATININE (BEAKER) (test 0.86 mg/dL 0.57-1.25 loqj=203) GLUCOSE RANDOM (BEAKER) 126 mg/dL 70-105 (test zpoi=198) CALCIUM (BEAKER) (test 8.6 mg/dL 8.4-10.2 hzsv=328) EGFR (BEAKER) (test 63 mL/min/1.73 sq m ESTIMATED GFR IS NOT jlut=7446) ACCURATE CREATININE CLEARANCE IN PREDICTING GLOMERULAR FILTRATION RATE. ESTIMATED GFR IS NOT APPLICABLE FOR DIALYSIS PATIENTS. MR, EXTREMITY, UPPER, [id number] 01:17:00Reason for exam:->swelling edema of handFINAL REPORT [...] MDReport Verified Date/Time: 04/20/2017 01:17:11 Reading Location: [address] Ortho Consult Reading Room SEDIMENTATION [id number] 18:28:00 Test Item Value Reference Range Comments SEDIMENTATION RATE, ERYTHROCYTE (BEAKER) (test 67 mm/HR 0-40 nsic=595) RAD, FINGERS, MIN 2 VIEWS, [id number] 12:15:00Reason for exam:->swelling , edemaShould this be [...] No acutedisplaced fracture or dislocation. Signed: Raf Joes MDReport Verified Date/Time: 04/19/2017 12:15:32 Reading Location: [facility] C013Y CT Body Reading Room 12: 15 PMCBC W/PLT COUNT & AUTO [id number] 07:32:00 Test Item Value Reference Range Comments WHITE BLOOD CELL COUNT (BEAKER) (test khvf=224) 12.5 K/ L 3.5-10.5 RED BLOOD CELL COUNT (BEAKER) (test jjev=062) 3.19 M/ L 3.93-5.22 HEMOGLOBIN (BEAKER) (test ivjf=819) 9.3 GM/DL 11.2-15.7 HEMATOCRIT (BEAKER) (test udqn=903) 29.3 % 34.1-44.9 MEAN CORPUSCULAR VOLUME (BEAKER) (test tadm=643) 91.8 fL 79.4-94.8 MEAN CORPUSCULAR HEMOGLOBIN (BEAKER) (test 29.2 pg 25.6-32.2 shtf=401) MEAN CORPUSCULAR HEMOGLOBIN CONC (BEAKER) (test 31.7 GM/DL 32.2-35.5 tqqw=208) RED CELL DISTRIBUTION WIDTH (BEAKER) (test 14.6 % 11.7-14.4 quyu=310) PLATELET COUNT (BEAKER) (test spxz=431) 528 K/CU MM 150-450 MEAN PLATELET VOLUME (BEAKER) (test aptg=190) 9.7 fL 9.4-12.3 NUCLEATED RED BLOOD CELLS (BEAKER) (test 0 /100 WBC 0-0 yhgl=391) NEUTROPHILS RELATIVE PERCENT (BEAKER) (test 82 % smjd=726) LYMPHOCYTES RELATIVE PERCENT (BEAKER) (test 7 % fxzn=778) MONOCYTES RELATIVE PERCENT (BEAKER) (test 10 % bpln=909) EOSINOPHILS RELATIVE PERCENT (BEAKER) (test 0 % fmpk=795) BASOPHILS RELATIVE PERCENT (BEAKER) (test 0 % jrau=415) NEUTROPHILS ABSOLUTE COUNT (BEAKER) (test 10.29 K/ L 1.56-6.13 wblf=105) LYMPHOCYTES ABSOLUTE COUNT (BEAKER) (test 0.85 K/ L 1.18-3.74 ppnx=439) MONOCYTES ABSOLUTE COUNT (BEAKER) (test 1.22 K/ L 0.24-0.36 deru=019) EOSINOPHILS ABSOLUTE COUNT (BEAKER) (test 0.03 K/ L 0.04-0.36 tyjk=381) BASOPHILS ABSOLUTE COUNT (BEAKER) (test 0.04 K/ L 0.01-0.08 nipw=785) IMMATURE GRANULOCYTES-RELATIVE PERCENT (BEAKER) 1 % 0-1 (test jqwf=1695) BASIC METABOLIC [id number] 07:21:00 Test Item Value Reference Range Comments SODIUM (BEAKER) (test 133 meq/L 136-145 gpjh=083) POTASSIUM (BEAKER) (test 4.1 meq/L 3.5-5.1 fwjx=082) CHLORIDE (BEAKER) (test 105 meq/L 98-107 ksqd=129) CO2 (BEAKER) (test 20 meq/L 22-29 uduk=528) BLOOD UREA NITROGEN 28 mg/dL 7-21 (BEAKER) (test fprj=351) CREATININE (BEAKER) (test 0.90 mg/dL 0.57-1.25 vwdv=804) GLUCOSE RANDOM (BEAKER) 104 mg/dL 70-105 (test gacg=135) CALCIUM (BEAKER) (test 8.9 mg/dL 8.4-10.2 jbml=830) EGFR (BEAKER) (test 60 mL/min/1.73 sq m ESTIMATED GFR IS NOT rzsn=6298) ACCURATE CREATININE CLEARANCE IN PREDICTING GLOMERULAR FILTRATION RATE. ESTIMATED GFR IS NOT APPLICABLE FOR DIALYSIS PATIENTS. C-REACTIVE [id number] 07:21:00 Test Item Value Reference Range Comments C-REACTIVE PROTEIN (ALIX) (test jprv=749) 12.50 mg/dL 0.00-0.50
--- NOTE | 2018-06-08 11:43 | ER ---
Nurse's Notes [facility] Name: Brynn De Luna Age: 82 yrs Sex: Female : 1935 Arrival Date: 06/08/2018 Time: 10:39 Bed 24 Private MD: Brenna Tuttle H Diagnosis: Vomiting Presentation: 06/08 10:55 Presenting complaint: Patient states: "I was seen here and I think the pain aa5 medicine they prescribed me is making me throw up". Pt states "every time I would take the medicine I would throw up after". Pt reports vomiting Friday and Friday. Pt states "I didn't take the pain medicine Friday or today so I am not throwing up anymore". Pt states "sometimes I would eat before the pain medicine and sometimes I didn't". Transition of care: patient was not received from another setting of care. Onset of symptoms was June 2018. Risk Assessment: Do you want to hurt yourself or someone else? Patient reports no desire to harm self or others. Initial Sepsis Screen: Does the patient meet any 2 criteria? No. Patient's initial sepsis screen is negative. Does the patient have a suspected source of infection? No. Patient's initial sepsis screen is negative. Care prior to arrival: None. 10:55 Method Of Arrival: Wheelchair aa5 10:55 Acuity: RUDI 5 aa5 Historical: - Allergies: 10:57 PENICILLINS; aa5 10:57 Sulfa (Sulfonamide Antibiotics); aa5 - PMHx: 10:57 Bladder Spasms; Hypertension; aa5 - PSHx: 10:57 Cholecystectomy; aa5 - Immunization history:: Pneumococcal vaccine is not up to date, Flu vaccine is not up to date. - Social history:: Smoking status: Patient/guardian denies using tobacco. - Ebola Screening: : No symptoms or risks identified at this time. - Family history:: not pertinent. - Hospitalizations: : No recent hospitalization is reported. Screenin:08 Abuse screen: Denies threats or abuse. Denies injuries from another. Nutritional aj screening: No deficits noted. Tuberculosis screening: No symptoms or risk factors identified. Fall Risk None identified. Assessment: 11:08 General: Appears in no apparent distress. comfortable, Behavior is calm, cooperative, aj appropriate for age. Pain: Denies pain. Neuro: Level of Consciousness is awake, alert, obeys commands, Oriented to person, place, time, situation, Appropriate for age. Respiratory: Airway is patent Respiratory effort is even, unlabored, Respiratory pattern is regular, symmetrical. GI: Abdomen is non-distended, Reports Vomiting when taking pain medication. Derm: Skin is intact, is healthy with good turgor, Skin is pink, warm \\T\\ dry. normal. Vital Signs: 10:57 BP 164 / 75; Pulse 89; Resp 16 S; Temp 97.9(TE); Pulse Ox 98% on R/A; Weight 68.04 kg aa5 (R); Height 5 ft. 4 in. (162.56 cm) (R); 10:57 Body Mass Index 25.75 (68.04 kg, 162.56 cm) aa5 ED Course: 10:39 Patient arrived in ED. mr 10:39 Brenna Tuttle DO is Private Physician. mr 10:57 Triage completed. aa5 10:57 Arm band placed on. aa5 10:58 Luis Alberto Ochoa MD is Attending Physician. rn 11:04 Bev Beck RN is Primary Nurse. aj 11:08 Patient has correct armband on for positive identification. Adult w/ patient. aj 11:08 No provider procedures requiring assistance completed. Patient did not have IV access aj during this emergency room visit. Administered Medications: No medications were administered Outcome: 11:08 Discharged to home via wheelchair, with family. aj 11:08 Condition: good 11:08 Discharge instructions given to patient, family, Instructed on discharge instructions, follow up and referral plans. Demonstrated understanding of instructions, follow-up care. 11:42 Discharge ordered by . rn 11:42 Patient left the ED. aj Signatures: Bev Beck, RN Aminta Dubose mr Luis Alberto Ochoa MD MD rn Calderon, Audri, RN RN aa
--- NOTE | 2018-06-08 11:43 | EDPHYS ---
Physician Documentation [facility] Name: Brynn De Luna Age: 82 yrs Sex: Female : 1935 Arrival Date: 06/08/2018 Time: 10:39 Bed 24 Private MD: Brenna Tuttle H ED Physician Luis Alberto Ochoa HPI: 06/08 11:35 This 82 yrs old Female presents to ER via Wheelchair with complaints of rn Vomiting. 11:35 The patient presents to the emergency department with nausea, vomiting. Onset: The rn symptoms/episode began/occurred 3 day(s) ago. Possible causes: antibiotics, pain medication. The symptoms are aggravated by nothing. The symptoms are alleviated by nothing. Severity of symptoms: At their worst the symptoms were mild in the emergency department the symptoms have resolved. The patient has not experienced similar symptoms in the past. Reports nausea/vomiting when taking the tramadol I prescribed last week for bursitis. Reports stopped taking the tramadol 2 days ago because thought it might be the problem, has not thrown up since stopping medication. Came today to ask me if I thought this was the problem. No other complaints. Right elbow improving.. Historical: - Allergies: 10:57 PENICILLINS; aa5 10:57 Sulfa (Sulfonamide Antibiotics); aa5 - PMHx: 10:57 Bladder Spasms; Hypertension; aa5 - PSHx: 10:57 Cholecystectomy; aa5 - Immunization history:: Pneumococcal vaccine is not up to date, Flu vaccine is not up to date. - Social history:: Smoking status: Patient/guardian denies using tobacco. - Ebola Screening: : No symptoms or risks identified at this time. - Family history:: not pertinent. - Hospitalizations: : No recent hospitalization is reported. ROS: 11:35 Constitutional: Negative for fever, chills, and weight loss, Eyes: Negative for injury, rn pain, redness, and discharge, Cardiovascular: Negative for chest pain, palpitations, and edema, Respiratory: Negative for shortness of breath, cough, wheezing, and pleuritic chest pain, Abdomen/GI: Negative for abdominal pain, diarrhea, and constipation, MS/Extremity: Negative for injury and deformity, Skin: Negative for injury, rash, and discoloration, Neuro: Negative for headache, weakness, numbness, tingling, and seizure. Exam: 11:35 Constitutional: This is a well developed, well nourished patient who is awake, alert, rn and in no acute distress. Abdomen/GI: sof,t non-tender MS/ Extremity: Pulses equal, no cyanosis. Neurovascular intact. Full, normal range of motion. Equal circumference. Decreased swelling of right olecranon bursitis, no overlying warmth or erythema. Neuro: Awake and alert, GCS 15, oriented to person, place, time, and situation. Cranial nerves II-XII grossly intact. Motor strength 5/5 in all extremities. Sensory grossly intact. Cerebellar exam normal. Vital Signs: 10:57 BP 164 / 75; Pulse 89; Resp 16 S; Temp 97.9(TE); Pulse Ox 98% on R/A; Weight 68.04 kg aa5 (R); Height 5 ft. 4 in. (162.56 cm) (R); 10:57 Body Mass Index 25.75 (68.04 kg, 162.56 cm) aa5 MDM: 10:58 Patient medically screened. rn 11:39 Differential diagnosis: medication side effect. Data reviewed: vital signs, nurses rn notes, and as a result, I will discharge patient. Counseling: I had a detailed discussion with the patient and/or guardian regarding: the historical points, exam findings, and any diagnostic results supporting the discharge/admit diagnosis, the need for outpatient follow up, to return to the emergency department if symptoms worsen or persist or if there are any questions or concerns that arise at home. Special discussion: I discussed with the patient/guardian in detail that at this point there is no indication for admission to the hospital. It is understood, however, that if the symptoms persist or worsen the patient needs to return immediately for re-evaluation. 11:39 ED course: Pt with improvement of bursitis, no longer throwing up, recommend stopping rn the tramadol and go to OTC meds given symptoms have now improved. . Administered Medications: No medications were administered Disposition: 06/08/18 11:42 Discharged to Home. Impression: Vomiting. - Condition is Stable. - Discharge Instructions: Vomiting, Adult. - Medication Reconciliation Form, Thank You Letter, Antibiotic Education, Prescription Opioid Use form. - Follow up: Private Physician; When: As needed; Reason: Recheck today's complaints, Re-evaluation by your physician. - Problem is new. - Symptoms have improved. Signatures: Bev Beck RN RN aj Luis Alberto Ochoa MD MD rn Calderon, Audri, RN RN aa5 Corrections: (The following items were deleted from the chart) 11:42 11:42 06/08/2018 11:42 Discharged to Home. Impression: Vomiting. Condition is Stable. aj Forms are Medication Reconciliation Form, Thank You Letter, Antibiotic Education, Prescription Opioid Use. Follow up: Private Physician; When: As needed; Reason: Recheck today's complaints, Re-evaluation by your physician. Problem is new. Symptoms have improved. rn
== END 2018-06-08 11:42 | disposition home or self-care (01) ==
LOC: ER 10:36
DX: R11.10 Vomiting, unspecified (principal); M71.9 Bursopathy, unspecified; Z79.891 Long term (current) use of opiate analgesic
CPT/HCPCS: 99281

== ENCOUNTER 2018-11-02 10:32 | Emergency (ER) | payer OTHER, MEDICARE ==
--- OUTSIDE RECORDS SUMMARY | 2018-11-02 10:35 | XMS REPORT | Clinical Summary ---
:1935 Author Organization [facility] Address [address] [place] [address] Care Team Providers Name Role Phone Unavailable [...] Not on file Results Not on fileafter 11/01/2017 Insurance Payer Benefit Plan / Group Subscriber ID Type Phone Address MEDICARE MEDICARE A B xxxxxxxxxx Medicare MCR SUPPLEMENT/INDIVIDUAL [employer]/[facility] xxxxxxxxxxx [facility] (Home) [place] [address] Advance Directives For more information, please contact:[address] [phone] Code Status Date Activated Date Inactivated Comments Full Code 04/19/2017 4:27 AM 04/25/2017 4:42 PM This code status was determined by: Patient
--- OUTSIDE RECORDS SUMMARY | 2018-11-02 10:36 | XMS REPORT ---
:1935 [facility] [place] [address] Care Team Providers Name Role Phone CHERELLE [...] Value Reference Range Comments CULTURE (BEAKER) (test ewak=6065) No acid-fast bacilli isolated in 42 days AFB SMEAR (BEAKER) (test kyya=545) No acid fast bacilli seen AFB CULTURE + [id number] 08:43:00 Test Item Value Reference Range Comments CULTURE (BEAKER) (test No acid-fast bacilli isolated taxe=8976) in 42 days AFB SMEAR (BEAKER) (test No acid fast bacilli seen mhtb=919) FUNGUS CULTURE + [id number] 12:11:00 Test Item Value Reference Range Comments CULTURE (BEAKER) (test No fungus isolated in 28 days semv=3257) FUNGUS SMEAR (BEAKER) (test No fungi seen wytq=3672) FUNGUS CULTURE + [id number] 12:11:00 Test Item Value Reference Range Comments CULTURE (BEAKER) (test No fungus isolated in 28 days bxhk=3929) FUNGUS SMEAR (BEAKER) (test No fungi seen nugj=3816) SURGICALLY OBTAINED CULTURE + GRAM [id number] 09:50:00 Test Item Value Reference Range Comments CULTURE (BEAKER) (test From Broth Only egdm=5913) Streptococcus sanguis GRAM STAIN RESULT <1+ WBCs (BEAKER) (test vbxe=5768) GRAM STAIN RESULT No organisms seen (BEAKER) (test tfwe=235959) SURGICALLY OBTAINED CULTURE + GRAM [id number] 09:06:00 Test Item Value Reference Range Comments CULTURE (BEAKER) (test 3+ Viridans rqbs=7319) Streptococcusof a second type CULTURE (BEAKER) (test STAPHYLOCOCCUS 2+ Viridans pryk=6783) LUGDUNENSIS Streptococcus Clindamycin (test code=10) Erythromycin (test code=4) Levofloxacin (test code=22) Linezolid (test code=40) Nitrofurantoin (test code=23) Oxacillin (test code=14) Rifampin (test code=43) Tetracycline (test code=2) Trimethoprim + Sulfamethoxazole (test code=47) Vancomycin (test code=13) GRAM STAIN RESULT <1+ WBCs (BEAKER) (test reuy=3517) GRAM STAIN RESULT No organisms seen (BEAKER) (test kxcu=036788) BASIC METABOLIC [id number] 08:28:00 Test Item Value Reference Range Comments SODIUM (BEAKER) (test 135 meq/L 136-145 yjuy=384) POTASSIUM (BEAKER) (test 4.4 meq/L 3.5-5.1 oafd=593) CHLORIDE (BEAKER) (test 106 meq/L 98-107 dyzb=830) CO2 (BEAKER) (test 24 meq/L 22-29 fxua=417) BLOOD UREA NITROGEN 15 mg/dL 7-21 (BEAKER) (test tloh=444) CREATININE (BEAKER) (test 0.66 mg/dL 0.57-1.25 hamd=691) GLUCOSE RANDOM (BEAKER) 96 mg/dL 70-105 (test fzxi=823) CALCIUM (BEAKER) (test 8.5 mg/dL 8.4-10.2 zsya=460) EGFR (BEAKER) (test 86 mL/min/1.73 sq m ESTIMATED GFR IS NOT uxzg=9595) ACCURATE CREATININE CLEARANCE IN PREDICTING GLOMERULAR FILTRATION RATE. ESTIMATED GFR IS NOT APPLICABLE FOR DIALYSIS PATIENTS. CBC (HEMOGRAM ONLY)2017-04-25 08:14:00 Test Item Value Reference Range Comments WHITE BLOOD CELL COUNT (BEAKER) (test jjgd=689) 7.8 K/ L 3.5-10.5 RED BLOOD CELL COUNT (BEAKER) (test ilfo=287) 3.35 M/ L 3.93-5.22 HEMOGLOBIN (BEAKER) (test wkbb=340) 9.5 GM/DL 11.2-15.7 HEMATOCRIT (BEAKER) (test txfv=390) 29.5 % 34.1-44.9 MEAN CORPUSCULAR VOLUME (BEAKER) (test xkvu=034) 88.1 fL 79.4-94.8 MEAN CORPUSCULAR HEMOGLOBIN (BEAKER) (test 28.4 pg 25.6-32.2 qciy=282) MEAN CORPUSCULAR HEMOGLOBIN CONC (BEAKER) (test 32.2 GM/DL 32.2-35.5 nrnm=287) RED CELL DISTRIBUTION WIDTH (BEAKER) (test 13.9 % 11.7-14.4 bunv=598) PLATELET COUNT (BEAKER) (test mrho=316) 569 K/CU MM 150-450 MEAN PLATELET VOLUME (BEAKER) (test ripx=503) 8.0 fL 9.4-12.3 NUCLEATED RED BLOOD CELLS (BEAKER) (test 0 /100 WBC 0-0 bgav=455) ANAEROBIC [id number] 01:01:00 Test Item Value Reference Range Comments CULTURE (BEAKER) (test wppu=0224) No anaerobes isolated ANAEROBIC [id number] 01:01:00 Test Item Value Reference Range Comments CULTURE (BEAKER) (test ymhs=2123) No anaerobes isolated RAD, CHEST, 1 VIEW, NON [id number] 16:03:00Reason for exam:->post picc line insertion Should this be performed at the bedside?->YesFINAL REPORT Two frontal chest images Discussion: Right PICC line extends to the cavoatrial junction level. Bilateral interstitial opacities probably represent edema perhaps withsuperimposed atelectasis. Correlate clinically for infection. No gross effusion or pneumothorax. Signed: Mckayla Hargrove Verified Date/Time: 04/24/2017 16:03:24 Reading Location: [facility] B1 C013W Consult Reading Room TISSUE [id number] 11:39:00Surgical Pathology Report Case: [id number] Authorizing Provider: Cherelle Christina MD Collected: [birth year] Ordering Location: [address] Received : 04/21/2017 0952 Service Pathologist: Franchesca Mccauley MD Specimen: Bone, Biopsy/Curettings, Left middle finger bone biopsy LEFT MIDDLE FINGER, BONE, BIOPSY: - OSTEOMYELITIS - ABSCESS - NEGATIVE FOR MALIGNANCY - CORRELATION WITH CULTURE STUDIES RECOMMENDED Signing Pathologist Direct Phone Line: at 11: [id number]; [id number] Left middle finger bone biopsyThe specimen is received in a fluidless container labeled with the patient's information and labeled "left middle finger bone biopsy" and consists of two ragged fragments of escamilla-red bone measuring 0.4and 0.5 cm, submitted entirely in A1 for decalcification. CG/ew PERFORMEDCBC W/PLT COUNT & AUTO [id number] 21:28:00 Test Item Value Reference Range Comments WHITE BLOOD CELL COUNT (BEAKER) (test zsuh=581) 8.4 K/ L 3.5-10.5 RED BLOOD CELL COUNT (BEAKER) (test lxkm=341) 3.21 M/ L 3.93-5.22 HEMOGLOBIN (BEAKER) (test eomd=233) 9.2 GM/DL 11.2-15.7 HEMATOCRIT (BEAKER) (test bfne=435) 28.7 % 34.1-44.9 MEAN CORPUSCULAR VOLUME (BEAKER) (test nsqf=780) 89.4 fL 79.4-94.8 MEAN CORPUSCULAR HEMOGLOBIN (BEAKER) (test 28.7 pg 25.6-32.2 wyib=900) MEAN CORPUSCULAR HEMOGLOBIN CONC (BEAKER) (test 32.1 GM/DL 32.2-35.5 xjrl=400) RED CELL DISTRIBUTION WIDTH (BEAKER) (test 14.2 % 11.7-14.4 ypaj=573) PLATELET COUNT (BEAKER) (test vcwj=561) 628 K/CU MM 150-450 MEAN PLATELET VOLUME (BEAKER) (test inug=896) 8.3 fL 9.4-12.3 NUCLEATED RED BLOOD CELLS (BEAKER) (test 0 /100 WBC 0-0 aalm=691) NEUTROPHILS RELATIVE PERCENT (BEAKER) (test 69 % swph=184) LYMPHOCYTES RELATIVE PERCENT (BEAKER) (test 16 % vixt=831) MONOCYTES RELATIVE PERCENT (BEAKER) (test 10 % ewif=940) EOSINOPHILS RELATIVE PERCENT (BEAKER) (test 4 % ihys=312) BASOPHILS RELATIVE PERCENT (BEAKER) (test 1 % fhit=454) NEUTROPHILS ABSOLUTE COUNT (BEAKER) (test 5.74 K/ L 1.56-6.13 xlxa=546) LYMPHOCYTES ABSOLUTE COUNT (BEAKER) (test 1.37 K/ L 1.18-3.74 qqtv=127) MONOCYTES ABSOLUTE COUNT (BEAKER) (test 0.82 K/ L 0.24-0.36 csji=051) EOSINOPHILS ABSOLUTE COUNT (BEAKER) (test 0.33 K/ L 0.04-0.36 dvhk=037) BASOPHILS ABSOLUTE COUNT (BEAKER) (test 0.04 K/ L 0.01-0.08 rvzq=878) IMMATURE GRANULOCYTES-RELATIVE PERCENT (BEAKER) 1 % 0-1 (test rgoc=2711) BASIC METABOLIC [id number] 21:13:00 Test Item Value Reference Range Comments SODIUM (BEAKER) (test 134 meq/L 136-145 utyw=313) POTASSIUM (BEAKER) (test 4.1 meq/L 3.5-5.1 jcwa=097) CHLORIDE (BEAKER) (test 106 meq/L 98-107 proy=240) CO2 (BEAKER) (test 22 meq/L 22-29 rtmn=943) BLOOD UREA NITROGEN 17 mg/dL 7-21 (BEAKER) (test ivsr=697) CREATININE (BEAKER) (test 0.68 mg/dL 0.57-1.25 dfjg=159) GLUCOSE RANDOM (BEAKER) 119 mg/dL 70-105 (test vqse=250) CALCIUM (BEAKER) (test 8.3 mg/dL 8.4-10.2 jyvi=315) EGFR (BEAKER) (test 83 mL/min/1.73 sq m ESTIMATED GFR IS NOT ltcs=7340) ACCURATE CREATININE CLEARANCE IN PREDICTING GLOMERULAR FILTRATION RATE. ESTIMATED GFR IS NOT APPLICABLE FOR DIALYSIS PATIENTS. VANCOMYCIN LEVEL, [id number] 21:11:00 Test Item Value Reference Range Comments VANCOMYCIN TROUGH (BEAKER) (test wnfp=116) 22.5 ug/mL 10.0-20.0 WOUND CULTURE + GRAM [id number] 07:33:00 Test Item Value Reference Range Comments CULTURE (BEAKER) 4+ Viridans Streptococcus (test ubjx=3621) GRAM STAIN RESULT 4+ WBCs (BEAKER) (test kube=7617) GRAM STAIN RESULT 1+ gram positive cocci (BEAKER) (test in chains, pairs and pmhi=93807) clusters VITAMIN [id number] 05:29:00 Test Item Value Reference Range Comments VITAMIN B12 (BEAKER) (test jril=857) 196 pg/mL 213-816 [id number] 05:29:00 Test Item Value Reference Range Comments FERRITIN (BEAKER) (test thvk=397) 182 ng/mL 5-275 IRON, TIBC, % SAT. (WITHOUT FERRITIN)2017-04-22 05:10:00 Test Item Value Reference Range Comments IRON (BEAKER) (test lcdc=983) 36 ug/dL 40-160 TOTAL IRON BINDING CAPACITY (BEAKER) (test 185 ug/dL 250-450 htwo=209) IRON % SATURATION (2) (BEAKER) (test hyhb=9745) 19 % 20-55 BASIC METABOLIC [id number] 05:02:00 Test Item Value Reference Range Comments SODIUM (BEAKER) (test 137 meq/L 136-145 ouja=612) POTASSIUM (BEAKER) (test 4.2 meq/L 3.5-5.1 qpxz=377) CHLORIDE (BEAKER) (test 111 meq/L 98-107 ndpn=936) CO2 (BEAKER) (test 21 meq/L 22-29 yolk=671) BLOOD UREA NITROGEN 21 mg/dL 7-21 (BEAKER) (test lwir=628) CREATININE (BEAKER) (test 0.72 mg/dL 0.57-1.25 sook=978) GLUCOSE RANDOM (BEAKER) 101 mg/dL 70-105 (test lttc=476) CALCIUM (BEAKER) (test 8.4 mg/dL 8.4-10.2 pbws=880) EGFR (BEAKER) (test 78 mL/min/1.73 sq m ESTIMATED GFR IS NOT wknr=0537) ACCURATE CREATININE CLEARANCE IN PREDICTING GLOMERULAR FILTRATION RATE. ESTIMATED GFR IS NOT APPLICABLE FOR DIALYSIS PATIENTS. CBC W/PLT COUNT & AUTO [id number] 04:55:00 Test Item Value Reference Range Comments WHITE BLOOD CELL COUNT (BEAKER) (test meqz=682) 8.1 K/ L 3.5-10.5 RED BLOOD CELL COUNT (BEAKER) (test vwwz=689) 3.08 M/ L 3.93-5.22 HEMOGLOBIN (BEAKER) (test ofts=654) 8.9 GM/DL 11.2-15.7 HEMATOCRIT (BEAKER) (test ufez=092) 28.0 % 34.1-44.9 MEAN CORPUSCULAR VOLUME (BEAKER) (test xqzu=557) 90.9 fL 79.4-94.8 MEAN CORPUSCULAR HEMOGLOBIN (BEAKER) (test 28.9 pg 25.6-32.2 ulkf=915) MEAN CORPUSCULAR HEMOGLOBIN CONC (BEAKER) (test 31.8 GM/DL 32.2-35.5 xrfl=124) RED CELL DISTRIBUTION WIDTH (BEAKER) (test 14.3 % 11.7-14.4 zrfh=231) PLATELET COUNT (BEAKER) (test fokf=133) 541 K/CU MM 150-450 MEAN PLATELET VOLUME (BEAKER) (test gcup=086) 8.5 fL 9.4-12.3 NUCLEATED RED BLOOD CELLS (BEAKER) (test 0 /100 WBC 0-0 feam=868) NEUTROPHILS RELATIVE PERCENT (BEAKER) (test 69 % pszx=722) LYMPHOCYTES RELATIVE PERCENT (BEAKER) (test 19 % pnkx=431) MONOCYTES RELATIVE PERCENT (BEAKER) (test 10 % inzy=301) EOSINOPHILS RELATIVE PERCENT (BEAKER) (test 1 % jfja=271) BASOPHILS RELATIVE PERCENT (BEAKER) (test 0 % fbur=798) NEUTROPHILS ABSOLUTE COUNT (BEAKER) (test 5.55 K/ L 1.56-6.13 cqpn=066) LYMPHOCYTES ABSOLUTE COUNT (BEAKER) (test 1.57 K/ L 1.18-3.74 oerh=150) MONOCYTES ABSOLUTE COUNT (BEAKER) (test 0.80 K/ L 0.24-0.36 tlnk=275) EOSINOPHILS ABSOLUTE COUNT (BEAKER) (test 0.09 K/ L 0.04-0.36 fqul=883) BASOPHILS ABSOLUTE COUNT (BEAKER) (test 0.02 K/ L 0.01-0.08 gapk=775) IMMATURE GRANULOCYTES-RELATIVE PERCENT (BEAKER) 1 % 0-1 (test rejb=9414) VANCOMYCIN LEVEL, [id number] 21:46:00 Test Item Value Reference Range Comments VANCOMYCIN TROUGH (BEAKER) (test ivaa=306) 18.0 ug/mL 10.0-20.0 SPIN/CONCENTRATION [id number] 13:53:00 Test Item Value Reference Range Comments CONCENTRATION CHARGED (BEAKER) (test lpiv=9888) Done SPIN/CONCENTRATION [id number] 13:52:00 Test Item Value Reference Range Comments CONCENTRATION CHARGED (BEAKER) (test ggzx=0424) Done BASIC METABOLIC [id number] 11:02:00 Test Item Value Reference Range Comments SODIUM (BEAKER) (test 136 meq/L 136-145 rtas=994) POTASSIUM (BEAKER) (test 4.5 meq/L 3.5-5.1 julv=934) CHLORIDE (BEAKER) (test 109 meq/L 98-107 xjdo=020) CO2 (BEAKER) (test 22 meq/L 22-29 iiix=832) BLOOD UREA NITROGEN 22 mg/dL 7-21 (BEAKER) (test nuow=618) CREATININE (BEAKER) (test 0.76 mg/dL 0.57-1.25 suae=228) GLUCOSE RANDOM (BEAKER) 133 mg/dL 70-105 (test dsxu=910) CALCIUM (BEAKER) (test 8.6 mg/dL 8.4-10.2 aoec=846) EGFR (BEAKER) (test 73 mL/min/1.73 sq m ESTIMATED GFR IS NOT dtpi=0893) ACCURATE CREATININE CLEARANCE IN PREDICTING GLOMERULAR FILTRATION RATE. ESTIMATED GFR IS NOT APPLICABLE FOR DIALYSIS PATIENTS. CBC W/PLT COUNT & AUTO [id number] 10:36:00 Test Item Value Reference Range Comments WHITE BLOOD CELL COUNT (BEAKER) (test rfaz=776) 10.5 K/ L 3.5-10.5 RED BLOOD CELL COUNT (BEAKER) (test uvih=023) 3.29 M/ L 3.93-5.22 HEMOGLOBIN (BEAKER) (test wxee=459) 9.7 GM/DL 11.2-15.7 HEMATOCRIT (BEAKER) (test ocwl=294) 29.5 % 34.1-44.9 MEAN CORPUSCULAR VOLUME (BEAKER) (test lplk=664) 89.7 fL 79.4-94.8 MEAN CORPUSCULAR HEMOGLOBIN (BEAKER) (test 29.5 pg 25.6-32.2 wzcr=441) MEAN CORPUSCULAR HEMOGLOBIN CONC (BEAKER) (test 32.9 GM/DL 32.2-35.5 pvqd=701) RED CELL DISTRIBUTION WIDTH (BEAKER) (test 14.2 % 11.7-14.4 ufpa=215) PLATELET COUNT (BEAKER) (test zuwy=577) 530 K/CU MM 150-450 MEAN PLATELET VOLUME (BEAKER) (test egua=541) 9.0 fL 9.4-12.3 NUCLEATED RED BLOOD CELLS (BEAKER) (test 0 /100 WBC 0-0 ruhf=070) NEUTROPHILS RELATIVE PERCENT (BEAKER) (test 89 % vowi=699) LYMPHOCYTES RELATIVE PERCENT (BEAKER) (test 4 % abmj=638) MONOCYTES RELATIVE PERCENT (BEAKER) (test 7 % kxog=091) EOSINOPHILS RELATIVE PERCENT (BEAKER) (test 0 % rfir=397) BASOPHILS RELATIVE PERCENT (BEAKER) (test 0 % relk=032) NEUTROPHILS ABSOLUTE COUNT (BEAKER) (test 9.36 K/ L 1.56-6.13 rlky=851) LYMPHOCYTES ABSOLUTE COUNT (BEAKER) (test 0.38 K/ L 1.18-3.74 npza=353) MONOCYTES ABSOLUTE COUNT (BEAKER) (test 0.73 K/ L 0.24-0.36 tznu=762) EOSINOPHILS ABSOLUTE COUNT (BEAKER) (test 0.00 K/ L 0.04-0.36 dszg=229) BASOPHILS ABSOLUTE COUNT (BEAKER) (test 0.02 K/ L 0.01-0.08 yfdo=427) IMMATURE GRANULOCYTES-RELATIVE PERCENT (BEAKER) 1 % 0-1 (test qrzk=7953) VANCOMYCIN LEVEL, [id number] 23:26:00 Test Item Value Reference Range Comments VANCOMYCIN TROUGH (BEAKER) (test pwas=662) 24.2 ug/mL 10.0-20.0 CBC W/PLT COUNT & AUTO [id number] 11:10:00 Test Item Value Reference Range Comments WHITE BLOOD CELL COUNT (BEAKER) (test goap=671) 8.5 K/ L 3.5-10.5 RED BLOOD CELL COUNT (BEAKER) (test ukcu=846) 3.18 M/ L 3.93-5.22 HEMOGLOBIN (BEAKER) (test rapi=240) 9.2 GM/DL 11.2-15.7 HEMATOCRIT (BEAKER) (test lclc=480) 28.5 % 34.1-44.9 MEAN CORPUSCULAR VOLUME (BEAKER) (test uduw=362) 89.6 fL 79.4-94.8 MEAN CORPUSCULAR HEMOGLOBIN (BEAKER) (test 28.9 pg 25.6-32.2 jnrz=610) MEAN CORPUSCULAR HEMOGLOBIN CONC (BEAKER) (test 32.3 GM/DL 32.2-35.5 wumv=325) RED CELL DISTRIBUTION WIDTH (BEAKER) (test 14.4 % 11.7-14.4 nior=605) PLATELET COUNT (BEAKER) (test gnal=594) 478 K/CU MM 150-450 MEAN PLATELET VOLUME (BEAKER) (test ilse=142) 9.0 fL 9.4-12.3 NUCLEATED RED BLOOD CELLS (BEAKER) (test 0 /100 WBC 0-0 lhwj=981) NEUTROPHILS RELATIVE PERCENT (BEAKER) (test 82 % cdqi=532) LYMPHOCYTES RELATIVE PERCENT (BEAKER) (test 10 % uyjb=145) MONOCYTES RELATIVE PERCENT (BEAKER) (test 5 % bdna=535) EOSINOPHILS RELATIVE PERCENT (BEAKER) (test 1 % teyz=011) BASOPHILS RELATIVE PERCENT (BEAKER) (test 0 % pmwx=565) NEUTROPHILS ABSOLUTE COUNT (BEAKER) (test 7.01 K/ L 1.56-6.13 ihiv=885) LYMPHOCYTES ABSOLUTE COUNT (BEAKER) (test 0.84 K/ L 1.18-3.74 dezk=516) MONOCYTES ABSOLUTE COUNT (BEAKER) (test 0.46 K/ L 0.24-0.36 mizj=187) EOSINOPHILS ABSOLUTE COUNT (BEAKER) (test 0.10 K/ L 0.04-0.36 olec=046) BASOPHILS ABSOLUTE COUNT (BEAKER) (test 0.03 K/ L 0.01-0.08 rtqj=324) IMMATURE GRANULOCYTES-RELATIVE PERCENT (BEAKER) 1 % 0-1 (test ffho=2013) BASIC METABOLIC [id number] 11:07:00 Test Item Value Reference Range Comments SODIUM (BEAKER) (test 133 meq/L 136-145 twwh=023) POTASSIUM (BEAKER) (test 3.9 meq/L 3.5-5.1 koqa=672) CHLORIDE (BEAKER) (test 106 meq/L 98-107 ctvd=480) CO2 (BEAKER) (test 20 meq/L 22-29 wrlp=990) BLOOD UREA NITROGEN 30 mg/dL 7-21 (BEAKER) (test roln=844) CREATININE (BEAKER) (test 0.86 mg/dL 0.57-1.25 sidb=628) GLUCOSE RANDOM (BEAKER) 126 mg/dL 70-105 (test ofmg=069) CALCIUM (BEAKER) (test 8.6 mg/dL 8.4-10.2 evwc=666) EGFR (BEAKER) (test 63 mL/min/1.73 sq m ESTIMATED GFR IS NOT vdui=8049) ACCURATE CREATININE CLEARANCE IN PREDICTING GLOMERULAR FILTRATION RATE. ESTIMATED GFR IS NOT APPLICABLE FOR DIALYSIS PATIENTS. MR, EXTREMITY, UPPER, [id number] 01:17:00Reason for exam:->swelling edema of handFINAL REPORT [...] finger tuft abscess and osteomyelitis. Signed: Ena Mantillaeport Verified Date/Time: 04/20/2017 01:17:11 Reading Location: [facility] B1 C013X Ortho Consult Reading Room SEDIMENTATION [id number] 18:28:00 Test Item Value Reference Range Comments SEDIMENTATION RATE, ERYTHROCYTE (BEAKER) (test 67 mm/HR 0-40 cayl=176) RAD, FINGERS, MIN 2 VIEWS, [id number] 12:15:00Reason for exam:->swelling , edemaShould this be [...] MDReport Verified Date/Time: 04/19/2017 12:15:32 Reading Location: [facility] B1 C013Y CT Body Reading Room 12: 15 PMCBC W/PLT COUNT & AUTO [id number] 07:32:00 Test Item Value Reference Range Comments WHITE BLOOD CELL COUNT (BEAKER) (test orqr=003) 12.5 K/ L 3.5-10.5 RED BLOOD CELL COUNT (BEAKER) (test qzvo=395) 3.19 M/ L 3.93-5.22 HEMOGLOBIN (BEAKER) (test gbrt=123) 9.3 GM/DL 11.2-15.7 HEMATOCRIT (BEAKER) (test agmk=795) 29.3 % 34.1-44.9 MEAN CORPUSCULAR VOLUME (BEAKER) (test yldb=166) 91.8 fL 79.4-94.8 MEAN CORPUSCULAR HEMOGLOBIN (BEAKER) (test 29.2 pg 25.6-32.2 gikr=168) MEAN CORPUSCULAR HEMOGLOBIN CONC (BEAKER) (test 31.7 GM/DL 32.2-35.5 qqha=245) RED CELL DISTRIBUTION WIDTH (BEAKER) (test 14.6 % 11.7-14.4 aiic=753) PLATELET COUNT (BEAKER) (test bmld=880) 528 K/CU MM 150-450 MEAN PLATELET VOLUME (BEAKER) (test wqlp=482) 9.7 fL 9.4-12.3 NUCLEATED RED BLOOD CELLS (BEAKER) (test 0 /100 WBC 0-0 nyzv=127) NEUTROPHILS RELATIVE PERCENT (BEAKER) (test 82 % mdvp=437) LYMPHOCYTES RELATIVE PERCENT (BEAKER) (test 7 % lhts=550) MONOCYTES RELATIVE PERCENT (BEAKER) (test 10 % svxy=367) EOSINOPHILS RELATIVE PERCENT (BEAKER) (test 0 % cxfj=072) BASOPHILS RELATIVE PERCENT (BEAKER) (test 0 % qnpl=511) NEUTROPHILS ABSOLUTE COUNT (BEAKER) (test 10.29 K/ L 1.56-6.13 ugcd=181) LYMPHOCYTES ABSOLUTE COUNT (BEAKER) (test 0.85 K/ L 1.18-3.74 mcst=545) MONOCYTES ABSOLUTE COUNT (BEAKER) (test 1.22 K/ L 0.24-0.36 otpn=590) EOSINOPHILS ABSOLUTE COUNT (BEAKER) (test 0.03 K/ L 0.04-0.36 ydxb=684) BASOPHILS ABSOLUTE COUNT (BEAKER) (test 0.04 K/ L 0.01-0.08 jysy=744) IMMATURE GRANULOCYTES-RELATIVE PERCENT (BEAKER) 1 % 0-1 (test llez=0597) BASIC METABOLIC [id number] 07:21:00 Test Item Value Reference Range Comments SODIUM (BEAKER) (test 133 meq/L 136-145 nrrn=291) POTASSIUM (BEAKER) (test 4.1 meq/L 3.5-5.1 mqnv=850) CHLORIDE (BEAKER) (test 105 meq/L 98-107 qwbk=092) CO2 (BEAKER) (test 20 meq/L 22-29 gkbc=702) BLOOD UREA NITROGEN 28 mg/dL 7-21 (BEAKER) (test xako=715) CREATININE (BEAKER) (test 0.90 mg/dL 0.57-1.25 ybhw=912) GLUCOSE RANDOM (BEAKER) 104 mg/dL 70-105 (test ymje=943) CALCIUM (BEAKER) (test 8.9 mg/dL 8.4-10.2 vizy=770) EGFR (BEAKER) (test 60 mL/min/1.73 sq m ESTIMATED GFR IS NOT vjvj=5241) ACCURATE CREATININE CLEARANCE IN PREDICTING GLOMERULAR FILTRATION RATE. ESTIMATED GFR IS NOT APPLICABLE FOR DIALYSIS PATIENTS. C-REACTIVE [id number] 07:21:00 Test Item Value Reference Range Comments C-REACTIVE PROTEIN (ALIX) (test dfgo=822) 12.50 mg/dL 0.00-0.50
[2018-11-02] MEDS ORDERED: LIDOCAINE 2% MPF 5 ML VIAL ONE (14:23)
[2018-11-02] MEDS ORDERED: CEFTRIAXONE 1000 MG/VIAL ONE (14:23)
--- NOTE | 2018-11-02 14:39 | ER ---
Nurse's Notes [facility] Name: Brynn De Luna Age: 83 yrs Sex: Female : 1935 Arrival Date: 11/02/2018 Time: 10:37 Bed 14 Private MD: Diagnosis: Other bursitis of elbow, left elbow Presentation: 11/02 10:57 Presenting complaint: Patient states: left elbow swelling for a couple of weeks. Has sv been seen here the last 2 times for it. Transition of care: patient was not received from another setting of care. Onset of symptoms was October 2018. Care prior to arrival: None. 10:57 Method Of Arrival: Wheelchair sv 10:57 Acuity: RUDI 4 sv 14:45 Risk Assessment: Do you want to hurt yourself or someone else? Patient reports no bp desire to harm self or others. Initial Sepsis Screen: Does the patient meet any 2 criteria? No. Patient's initial sepsis screen is negative. Does the patient have a suspected source of infection? No. Patient's initial sepsis screen is negative. Triage Assessment: 10:59 General: Appears in no apparent distress. comfortable, well developed, Behavior is sv calm, cooperative, appropriate for age. Pain: Denies pain. Neuro: Level of Consciousness is awake, alert, obeys commands, Oriented to person, place, time, situation, Moves all extremities. Respiratory: Respiratory effort is even, unlabored, Respiratory pattern is regular, symmetrical. Musculoskeletal: Reports swelling in the left elbow. Historical: - Allergies: 10:58 PENICILLINS; sv 10:58 Sulfa (Sulfonamide Antibiotics); sv - Home Meds: 14:45 amlodipine 5 mg tab 1 tab once daily [Active]; losartan 100 mg Oral tab 1 tab once bp daily [Active]; cyanocobalamin (vitamin B-12) 1,000 mcg Oral tab [Active]; - PMHx: 10:58 Bladder Spasms; Hypertension; sv - PSHx: 10:58 Cholecystectomy; sv - Immunization history:: Adult Immunizations up to date. - Social history:: The patient lives at home, Smoking status: Patient/guardian denies using tobacco. - Ebola Screening: : Patient negative for fever greater than or equal to 101.5 degrees Fahrenheit, and additional compatible Ebola Virus Disease symptoms Patient denies exposure to infectious person Patient denies travel to an Ebola-affected area in the 21 days before illness onset No symptoms or risks identified at this time. Screenin:00 Abuse screen: Denies threats or abuse. Denies injuries from another. Nutritional bp screening: No deficits noted. Tuberculosis screening: No symptoms or risk factors identified. Fall Risk None identified. Assessment: 11:00 General: Appears in no apparent distress. comfortable, Behavior is calm, cooperative, bp appropriate for age. Pain: Complains of pain in left elbow. Neuro: Level of Consciousness is awake, alert, obeys commands, Oriented to person, place, time, situation, Appropriate for age. Cardiovascular: No deficits noted. Respiratory: Airway is patent Respiratory effort is even, unlabored, Respiratory pattern is regular, symmetrical. GI: No signs and/or symptoms were reported involving the gastrointestinal system. : No signs and/or symptoms were reported regarding the genitourinary system. EENT: No deficits noted. Derm: No deficits noted. Musculoskeletal: Circulation, motion, and sensation intact. 14:00 Reassessment: CONSENT FOR ASPIRATION OF LEFT OLECRANON BURSA SIGNED AND WITNESSED. bp 14:24 Reassessment: MD AT B/S FOR PROCEDURE. bp 14:43 Reassessment: PT D/C HOME WITH FAMILY, DX WITH LEFT ELBOW BURSITIS. bp Vital Signs: 10:58 BP 146 / 63; Pulse 75; Resp 18; Temp 98; Pulse Ox 98% ; Weight 63.5 kg; Height 5 ft. 4 sv in. (162.56 cm); Pain 0/10; 13:09 BP 155 / 67; Pulse 79; Resp 14; Pulse Ox 96% ; bp 14:30 BP 144 / 57; Pulse 72; Resp 16; Pulse Ox 98% ; bp 10:58 Body Mass Index 24.03 (63.50 kg, 162.56 cm) sv ED Course: 10:37 Patient arrived in ED. as 10:58 Triage completed. sv 10:59 Arm band placed on. sv 11:00 Patient has correct armband on for positive identification. Bed in low position. Call bp light in reach. Side rails up X2. Adult w/ patient. 11:59 Cameron Cabrera, VITALY is Primary Nurse. bp 12:52 Lauro Freeman MD is Attending Physician. gs 14:20 Assist provider with aspiration of left elbow using 18 gauge needle, Lidocaine, fluid bp removed was bloody, Specimen sent to lab. Removed 20 ml's of fluid Set up for procedure. Performed by Lauro Freeman MD Dressed with band aid, Patient tolerated well. 14:38 Kennedy Fuller MD is Referral Physician. 14:42 Patient did not have IV access during this emergency room visit. bp Administered Medications: 14:10 Drug: Lidocaine (1 %) 5 mg {Note: AT B/S FOR MD.} Volume: 5 ml; Route: Infiltration; bp 14:30 Drug: Rocephin (cefTRIAXone) 1 grams Route: IM; Site: left deltoid; bp Outcome: 14:38 Discharge ordered by MD. gs 14:43 Discharged to home via wheelchair, with family. bp 14:43 Condition: stable 14:43 Discharge instructions given to patient, Instructed on discharge instructions, follow up and referral plans. medication usage, wound care, Demonstrated understanding of instructions, follow-up care, medications, wound care, Prescriptions given X 1. 15:00 Patient left the ED. bp Signatures: Shu Alicea, VITALY RN Johanna Gumzan as Lauro Freeman MD MD Cameron Cabrera RN RN bp Corrections: (The following items were deleted from the chart) 11:00 10:58 Pulse 75bpm; Resp 18bpm; Pulse Ox 98%; Temp 98F; 63.5 kg; Height 5 ft. 4 in.; sv BMI: 24.0; Pain 0/10; sv 11:00 10:58 Pulse 75bpm; Resp 18bpm; Pulse Ox 98%; Temp 98F; 63.5 kg; Height 5 ft. 4 in.; sv BMI: 24.0; Pain 0/10; sv
--- NOTE | 2018-11-02 14:39 | EDPHYS ---
Physician Documentation [facility] Name: Brynn De Luna Age: 83 yrs Sex: Female : 1935 Arrival Date: 11/02/2018 Time: 10:37 Bed 14 Private MD: ED Physician Lauro Freeman HPI: 11/02 14:35 This 83 yrs old Female presents to ER via Wheelchair with complaints of Elbow gs Pain. 14:35 The patient or guardian complains of swelling. The complaints affect the left elbow. gs Onset: The symptoms/episode began/occurred 2 week(s) ago, and became persistent. Modifying factors: the symptoms are aggravated by movement. Associated signs and symptoms: Pertinent positives: erythema, MILD, Pertinent negatives: numbness. Severity of symptoms: At their worst the symptoms were severe, in the emergency department the symptoms are unchanged. The patient has experienced similar episodes in the past, several times. Historical: - Allergies: 10:58 PENICILLINS; sv 10:58 Sulfa (Sulfonamide Antibiotics); sv - Home Meds: 14:45 amlodipine 5 mg tab 1 tab once daily [Active]; losartan 100 mg Oral tab 1 tab once bp daily [Active]; cyanocobalamin (vitamin B-12) 1,000 mcg Oral tab [Active]; - PMHx: 10:58 Bladder Spasms; Hypertension; sv - PSHx: 10:58 Cholecystectomy; sv - Immunization history:: Adult Immunizations up to date. - Social history:: The patient lives at home, Smoking status: Patient/guardian denies using tobacco. - Ebola Screening: : Patient negative for fever greater than or equal to 101.5 degrees Fahrenheit, and additional compatible Ebola Virus Disease symptoms Patient denies exposure to infectious person Patient denies travel to an Ebola-affected area in the 21 days before illness onset No symptoms or risks identified at this time. ROS: 14:35 All other systems are negative. gs Exam: 14:35 Constitutional: The patient appears alert, awake. gs 14:35 Musculoskeletal/extremity: Circulation is intact in all extremities. Sensation intact. Joints: the left elbow displays swelling, tenderness, BURSITIS. Vital Signs: 10:58 BP 146 / 63; Pulse 75; Resp 18; Temp 98; Pulse Ox 98% ; Weight 63.5 kg; Height 5 ft. 4 sv in. (162.56 cm); Pain 0/10; 13:09 BP 155 / 67; Pulse 79; Resp 14; Pulse Ox 96% ; bp 14:30 BP 144 / 57; Pulse 72; Resp 16; Pulse Ox 98% ; bp 10:58 Body Mass Index 24.03 (63.50 kg, 162.56 cm) sv Procedures: 14:35 Joint Treatment: Aspiration of left elbow using 18 gauge needle, Removed bloody fluid, gs Specimen sent to lab. Dressed with band aid, Patient tolerated well. MDM: 13:27 Patient medically screened. 14:35 Differential diagnosis: BURSITIS, SEPTIC BURSITIS, CELLULITIS. Data reviewed: vital gs signs, nurses notes. Response to treatment: the patient's symptoms have markedly improved after treatment, and as a result, I will discharge patient. 11/02 13:23 Order name: Body Fluid Culture 11/02 13:23 Order name: Fluid Cell Count,Body 11/02 13:23 Order name: Surgical Consent: ASPIRATION OF OLECRANON BURSA; Complete Time: 14:40 Administered Medications: 14:10 Drug: Lidocaine (1 %) 5 mg {Note: AT B/S FOR MD.} Volume: 5 ml; Route: Infiltration; bp 14:30 Drug: Rocephin (cefTRIAXone) 1 grams Route: IM; Site: left deltoid; bp Disposition: 11/02/18 14:38 Discharged to Home. Impression: Other bursitis of elbow, left elbow. - Condition is Stable. - Discharge Instructions: Bursitis. - Prescriptions for Keflex 500 mg Oral Capsule - take 1 capsule by ORAL route every 12 hours for 10 days; 14 capsule. - Medication Reconciliation Form, Thank You Letter, Antibiotic Education, Prescription Opioid Use form. - Follow up: Kennedy Fuller MD; When: 2 - 3 days; Reason: Re-evaluation by your physician. Signatures: Dispatcher [employer] Shu Lacey, VITALY RN Lauro Yanez MD MD gs Peltier, Brian, RN RN bp Corrections: (The following items were deleted from the chart) 15:00 14:38 11/02/2018 14:38 Discharged to Home. Impression: Other bursitis of elbow, left bp elbow. Condition is Stable. Forms are Medication Reconciliation Form, Thank You Letter, Antibiotic Education, Prescription Opioid Use. Follow up: Kennedy Fuller; When: 2 - 3 days; Reason: Re-evaluation by your physician. gs
[2018-11-02 16:02] LABS: Body Fluid WBC 370 /mm^3
[2018-11-02 16:06] LABS: Appearance TURBID (CLEAR); Body Fluid Source SYNOVIAL; Color of fluid Red (COLORLESS)
== END 2018-11-02 15:00 | disposition home or self-care (01) ==
LOC: ER 10:32
DX: M70.32 Other bursitis of elbow, left elbow (principal); I10 Essential (primary) hypertension; Z88.0 Allergy status to penicillin; Z88.2 Allergy status to sulfonamides
CPT/HCPCS: 36415; 87070; 89050; 96372; 99284